=== PATIENT | male | born 1935 | race Caucasian/White ===

== ENCOUNTER 2017-01-27 20:56 | Emergency (ER) | payer MEDICARE, BC ==
[2017-01-27] MEDS ORDERED: ALBUTEROL NEBULIZED 2.5 MG/3 ML INHALATION STA (21:19)
[2017-01-27 21:37] LABS: Basophils # (A) 0.1 k/uL (0-0.2); Basophils % (A) 2 %; CH 32.9; CHCM 34.4; Eosinophils # (A) 0.3 k/uL (0-0.7); Eosinophils % (A) 4 %; HCT 34.7 % (39.0-53.0); HDW 2.37; Luc # (Auto) 0.27; Luc % (Auto) 4; Lymphocytes # (A) 1.5 k/uL (1.0-4.8); Lymphocytes % (A) 23 %; MCH 33.1 pg (25.0-35.0); MCHC 34.5 g/dL (31.0-37.0); MCV 95.9 fL (80.0-100.0); Mean Platelet Volume 7.3; Monocytes # (A) 0.4 k/uL (0-1.0); Monocytes % (A) 6 %; Neutrophils % (A) 62 %; RBC 3.62 m/uL (4.30-5.90); RDW 12.6 % (11.5-15.5); WBC 6.4 k/uL (3.8-10.6); WBC (Perox) 6.72
[2017-01-27 21:51] LABS: Partial Thromboplastin Time 22.9 sec (22.0-30.0)
[2017-01-27 21:54] LABS: ALT 21 U/L (21-72); AST 24 U/L (17-59); Alkaline Phosphatase 84 U/L (38-126); Anion Gap 14 mmol/L; Blood Urea Nitrogen 14 mg/dL (9-20); Calcium 9.2 mg/dL (8.4-10.2); Carbon Dioxide 20 mmol/L (22-30); Chloride 99 mmol/L (98-107); Glucose 90 mg/dL (74-99); Non-African American GFR(MDRD) >60 (>60 ml/min/1.73 sqM); Potassium 4.5 mmol/L (3.5-5.1); Sodium 133 mmol/L (137-145); Total Bilirubin 0.6 mg/dL (0.2-1.3)
[2017-01-27] MEDS ORDERED: LIDOCAINE VISCOUS 300 MG/15 ML CUP MUCOUS MEM STA (21:55)
--- NOTE | 2017-01-27 21:56 | XR ---
EXAMINATION TYPE: XR chest 2V DATE OF EXAM: 01/27/2017 9:33 PM COMPARISON: 04/26/2010 HISTORY: Cough TECHNIQUE: Frontal and lateral views of the chest are obtained. FINDINGS: There is coarsening of interstitial markings. Heart size is normal. There is no gross hear t failure. There are no hilar masses. There are chest leads. There is no sign of pleural effusion. IMPRESSION: Pulmonary interstitial fibrosis that has progressed compared to old exam. No gross heart failure. Acute interstitial pneumonia cannot be excluded.
--- NOTE | 2017-01-27 22:08 | ED ---
General Adult HPI - General Chief complaint: Shortness of Breath Stated complaint: SOB Time Seen by Provider: 01/27/17 21:03 Source: patient Mode of arrival: wheelchair Limitations: no limitations - History of Present Illness Initial comments: This patient is an 81-year-old man with history of interstitial fibrosis who presents to be evaluated for worsening of his cough and shortness of breath that is been going on for between 1 and 2 weeks. Patient denies fever or chills. He states there is occasional yellow sputum. He denies chest pain, leg pain or swelling, change in urination, bloody or dark tarry stools. Complaint: cough -: days(s) Consistency: constant Improves with: none Worsens with: none Associated Symptoms: cough, shortness of breath - Related Data Home Medications Medication Instructions Recorded Confirmed Aspirin [Adult Low Dose Aspirin EC] 81 mg PO DAILY 02/14/16 01/27/17 Atorvastatin [Lipitor] 20 mg PO DAILY 02/14/16 01/27/17 Lisinopril [Zestril] 10 mg PO DAILY 02/14/16 01/27/17 Previous Rx's Medication Instructions Recorded Albuterol Inhaler [Ventolin Hfa 1 - 2 puff INHALATION Q6HR PRN #1 01/27/17 Inhaler] inhaler Azithromycin [Zithromax Z-pack] 250 mg PO DIRECTED #6 tab 01/27/17 predniSONE 60 mg PO DAILY #30 tab 01/27/17 Allergies Allergy/AdvReac Type Severity Reaction Status Date / Time No Known Allergies Allergy Verified 01/27/17 21:02 Review of Systems ROS Statement: Those systems with pertinent positive or pertinent negative responses have been documented in the HPI. ROS Other: All systems not noted in ROS Statement are negative. Constitutional: Denies: fever, chills Respiratory: Reports: cough, dyspnea, wheezes. Denies: hemoptysis Cardiovascular: Denies: chest pain, palpitations, orthopnea, edema, syncope Gastrointestinal: Denies: abdominal pain, vomiting, melena, hematochezia Genitourinary: Denies: dysuria, hematuria Musculoskeletal: Denies: back pain Skin: Denies: rash Neurological: Denies: headache Past Medical History Past Medical History: Hyperlipidemia, Hypertension, Myocardial Infarction ([place]) Additional Past Medical History / Comment(s): PROSTATE CANCER History of Any Multi-Drug Resistant Organisms: None Reported Past Surgical History: Heart Catheterization Past Psychological History: No Psychological Hx Reported Smoking Status: Never smoker Past Alcohol Use History: Daily Past Drug Use History: None Reported General Exam Limitations: no limitations General appearance: alert, in no apparent distress Head exam: Present: atraumatic, normocephalic Eye exam: Present: normal appearance Respiratory exam: Present: wheezes. Absent: respiratory distress, rales, rhonchi, stridor, accessory muscle use, decreased breath sounds Cardiovascular Exam: Present: regular rate, normal rhythm, normal heart sounds. Absent: systolic murmur, diastolic murmur, rubs, gallop GI/Abdominal exam: Present: soft. Absent: distended, tenderness, guarding, rebound, rigid Extremities exam: Present: normal inspection, normal capillary refill. Absent: pedal edema, calf tenderness Back exam: Present: normal inspection. Absent: CVA tenderness (R), CVA tenderness (L) Neurological exam: Present: alert Skin exam: Present: warm, dry, intact, normal color. Absent: rash Course Vital Signs 01/27/17 01/27/17 01/27/17 20:59 21:19 21:26 Temperature 99.1 F Pulse Rate 89 86 89 Respiratory 20 Rate Blood Pressure 123/68 O2 Sat by Pulse 96 Oximetry 01/27/17 01/28/17 22:02 00:03 Temperature 98.9 F Pulse Rate 78 76 Respiratory 18 18 Rate Blood Pressure 123/72 121/74 O2 Sat by Pulse 96 96 Oximetry EKG Findings - EKG Results: EKG: interpreted by SULY NUÑEZ, sinus rhythm (Rate 85 bpm), normal axis, normal QRS, normal ST/T, no acute changes Medical Decision Making - Medical Decision Making Patient is a-year-old man with history of interstitial fibrosis. He comes in with concern that he may have pneumonia as she continues to cough and shortness of breath. The patient did have a mildly elevated d-dimer and had CT that shows probable progression of his interstitial fibrosis. The patient is feeling better following treatments here. I discussed admission with seeing the general assistant while he is here with patient feels better and would rather follow as outpatient. We discussed return parameters he'll return if the symptoms recur or there is worsening in anyway. - Lab Data Result diagrams: 01/27/17 21:10 01/27/17 21:10 Lab Results 01/27/17 01/27/17 01/27/17 Range/Units 21:10 21:10 21:10 WBC 6.4 (3.8-10.6) k/uL RBC 3.62 L (4.30-5.90) m/uL Hgb 12.0 L (13.0-17.5) gm/dL Hct 34.7 L (39.0-53.0) % MCV 95.9 (80.0-100.0) fL MCH 33.1 (25.0-35.0) pg MCHC 34.5 (31.0-37.0) g/dL RDW 12.6 (11.5-15.5) % Plt Count 175 (150-450) k/uL Neutrophils % 62 % Lymphocytes % 23 % Monocytes % 6 % Eosinophils % 4 % Basophils % 2 % Neutrophils # 4.0 (1.3-7.7) k/uL Lymphocytes # 1.5 (1.0-4.8) k/uL Monocytes # 0.4 (0-1.0) k/uL Eosinophils # 0.3 (0-0.7) k/uL Basophils # 0.1 (0-0.2) k/uL PT 10.0 (9.0-12.0) sec INR 1.0 (<1.1) APTT 22.9 (22.0-30.0) sec D-Dimer 3.46 H (<0.60) mg/L FEU Sodium 133 L (137-145) mmol/L Potassium 4.5 (3.5-5.1) mmol/L Chloride 99 (98-107) mmol/L Carbon Dioxide 20 L (22-30) mmol/L Anion Gap 14 mmol/L BUN 14 (9-20) mg/dL Creatinine 0.90 (0.66-1.25) mg/dL Est GFR (MDRD) Af Amer >60 (>60 ml/min/1.73 sqM) Est GFR (MDRD) Non-Af >60 (>60 ml/min/1.73 sqM) Glucose 90 (74-99) mg/dL Calcium 9.2 (8.4-10.2) mg/dL Total Bilirubin 0.6 (0.2-1.3) mg/dL AST 24 (17-59) U/L ALT 21 (21-72) U/L Alkaline Phosphatase 84 (38-126) U/L Troponin I (0.000-0.034) ng/mL NT-Pro-B Natriuret Pep pg/mL Total Protein 8.0 (6.3-8.2) g/dL Albumin 4.1 (3.5-5.0) g/dL Influenza Type A RNA (Not Detectd) Influenza Type B (PCR) (Not Detectd) 01/27/17 01/27/17 01/27/17 Range/Units 21:10 21:10 21:10 WBC (3.8-10.6) k/uL RBC (4.30-5.90) m/uL Hgb (13.0-17.5) gm/dL Hct (39.0-53.0) % MCV (80.0-100.0) fL MCH (25.0-35.0) pg MCHC (31.0-37.0) g/dL RDW (11.5-15.5) % Plt Count (150-450) k/uL Neutrophils % % Lymphocytes % % Monocytes % % Eosinophils % % Basophils % % Neutrophils # (1.3-7.7) k/uL Lymphocytes # (1.0-4.8) k/uL Monocytes # (0-1.0) k/uL Eosinophils # (0-0.7) k/uL Basophils # (0-0.2) k/uL PT (9.0-12.0) sec INR (<1.1) APTT (22.0-30.0) sec D-Dimer (<0.60) mg/L FEU Sodium (137-145) mmol/L Potassium (3.5-5.1) mmol/L Chloride (98-107) mmol/L Carbon Dioxide (22-30) mmol/L Anion Gap mmol/L BUN (9-20) mg/dL Creatinine (0.66-1.25) mg/dL Est GFR (MDRD) Af Amer (>60 ml/min/1.73 sqM) Est GFR (MDRD) Non-Af (>60 ml/min/1.73 sqM) Glucose (74-99) mg/dL Calcium (8.4-10.2) mg/dL Total Bilirubin (0.2-1.3) mg/dL AST (17-59) U/L ALT (21-72) U/L Alkaline Phosphatase (38-126) U/L Troponin I <0.012 (0.000-0.034) ng/mL NT-Pro-B Natriuret Pep 451 pg/mL Total Protein (6.3-8.2) g/dL Albumin (3.5-5.0) g/dL Influenza Type A RNA Not Detected (Not Detectd) Influenza Type B (PCR) Not Detected (Not Detectd) Disposition Clinical Impression: Interstitial pulmonary fibrosis Disposition: HOME SELF-CARE Condition: Fair Instructions: Pulmonary Fibrosis (ED) Prescriptions: Albuterol Inhaler [Ventolin Hfa Inhaler] 1 - 2 puff INHALATION Q6HR PRN #1 inhaler PRN Reason: Wheezing Azithromycin [Zithromax Z-pack] 250 mg PO DIRECTED #6 tab predniSONE 60 mg PO DAILY #30 tab Referrals: Gokul Guerrero DO [Primary Care Provider] - 1-2 days Connor Rasmussen MD [STAFF PHYSICIAN] - 1-2 days
[2017-01-27] MEDS ORDERED: AZITHROMYCIN 500 MG TAB PO STA (22:30)
[2017-01-27] MEDS ORDERED: RX INFO: IV CONTRAST WAS GIVEN 1 EACH MISC MISCELLANE PRN (22:31)
--- NOTE | 2017-01-27 23:19 | CT ---
Exam: CTA CHEST History: Dyspnea, rule out PE. Comparison: No prior CT. Technique: Continuous axial images of the chest were obtained per CTPA protocol. Findings: No definite filling defect to suggest a pulmonary embolus. No significant acute aortic abnormality. Calcific aortic and coronary calcific atherosclerosis is present. Heart is normal in size. No pericardial effusion. No consolidation to suggest pneumonia. No pleural effusion. However, there is mild prominence of interstitial lung markings diffusely. This is predominantly seen in a peripheral distribution. It may represent developing pulmonary fibrosis. Borderline mediastinal lymphadenopathy with at least one lymph node measuring approximately 1.1 cm in short axis dimension. No aggressive appearing osseous process, but there is subtle contour irregularity of the left 5-9 and right 7-9 right rib fractures. Impression: 1. No evidence for pulmonary embolism. 2. Evidence for interstitial pulmonary fibrosis. Correlate with social history. No consolidation. 3. Borderline mediastinal lymphadenopathy. May be reactive there has been recent infection. Malignancy considered less likely, consider 6 month followup. CTDI vol = 58 mGy DLP = 267.9 mGycm
[2017-01-27 23:31] VITALS: RESP 18
[2017-01-27] MEDS ORDERED: predniSONE 20 MG TAB PO STA (23:37)
[2017-01-28 00:05] VITALS: BP 121/74; PULSE 76; TEMP 98.9
== END 2017-01-28 00:03 | disposition home or self-care (01) ==
LOC: EC 20:56
DX: J84.10 Pulmonary fibrosis, unspecified (principal); E78.5 Hyperlipidemia, unspecified; I10 Essential (primary) hypertension; I25.2 Old myocardial infarction; Z85.46 Personal history of malignant neoplasm of prostate; Z95.5 Presence of coronary angioplasty implant and graft; Z79.82 Long term (current) use of aspirin; Z79.899 Other long term (current) drug therapy
CPT/HCPCS: 99285; 96365; 36415; 94640; 93005; 85379; 83880; 80053; 84484; 85025; 85610; 85730; 87502; 71020; 71275; Q9967; J0696; J7512

== ENCOUNTER → 2017-09-12 | Outpatient (CLI) | payer MEDICARE, BC ==
[2017-09-16 15:53] LABS: Large VLDL Particle Number,NMR 1.6 nmol/L (<=2.7)
== END | disposition home or self-care (01) ==
LOC: LABWHC1 10:28
PROVIDERS: ATTEND Internal Medicine Cardiovascular Disease
DX: I25.10 Atherosclerotic heart disease of native coronary artery without angina pectoris (principal)
CPT/HCPCS: 36415; 83704

== ENCOUNTER → 2019-04-26 | Outpatient (CLI) | payer MEDICARE, BC ==
[2019-04-26 08:55] LABS: African American GFR (CKD) 53 (>60 ml/min/1.73 sqM); Anion Gap 10 mmol/L; Blood Urea Nitrogen 24 mg/dL (9-20); Calcium 9.5 mg/dL (8.4-10.2); Carbon Dioxide 24 mmol/L (22-30); Chloride 98 mmol/L (98-107); Glucose 94 mg/dL (74-99); Potassium 5.8 mmol/L (3.5-5.1); Sodium 132 mmol/L (137-145)
== END | disposition home or self-care (01) ==
LOC: LABWHC1 08:22
PROVIDERS: ATTEND Family Medicine
DX: E87.1 Hypo-osmolality and hyponatremia (principal)
CPT/HCPCS: 36415; 80048

== ENCOUNTER 2019-05-13 06:00 | Emergency (ER) | payer MEDICARE, BC ==
[2019-05-13 06:06] VITALS: RESP 18; TEMP 97.4
[2019-05-13 06:25] LABS: Basophils % (A) 1 %; Eosinophils # (A) 0.5 k/uL (0-0.7); Eosinophils % (A) 9 %; HCT 37.4 % (39.0-53.0); HGB 12.6 gm/dL (13.0-17.5); Lymphocytes # (A) 1.6 k/uL (1.0-4.8); Lymphocytes % (A) 29 %; MCH 31.9 pg (25.0-35.0); MCHC 33.8 g/dL (31.0-37.0); MCV 94.4 fL (80.0-100.0); Mean Platelet Volume 7.5; Monocytes # (A) 0.4 k/uL (0-1.0); Monocytes % (A) 8 %; Neutrophils % (A) 53 %; Platelet Count 180 k/uL (150-450); RBC 3.96 m/uL (4.30-5.90); RDW 13.4 % (11.5-15.5); WBC 5.7 k/uL (3.8-10.6)
--- NOTE | 2019-05-13 06:34 | ED ---
Recheck HPI - General Chief Complaint: Recheck/Abnormal Lab/Rx Stated Complaint: Abn labs Time Seen by Provider: 05/13/19 06:23 Source: patient Mode of arrival: ambulatory Limitations: no limitations - History of Present Illness Initial Comments: This patient is an 83-year-old man who presents to be evaluated for an abnormal lab test. The patient states that he had been following up with clinic at the [facility]. He had blood drawn then reportedly one his electrolytes was off. The patient does not recall which one but they had called him about. She states that this is something that they had been following as it was previously elevated there a few days before. He was told he should be seen at the emergency department in relation to this test. In reviewing systems, the patient states she has been having some generalized weakness and fatigue going back between a week and 2. He states he has also had a little bit of a nonproductive cough for the past 4-5 days. He is denying dyspnea. No change in urination or bowel movements. No leg pain or swelling. MD Complaint: abnormal lab -: days(s) Returns Today for: Called Because of Abnormal Lab/Test Symptoms Since Prior Visit: no new symptoms Context: called for abnormal lab result Associated Symptoms: none - Related Data Home Medications Medication Instructions Recorded Confirmed Aspirin [Adult Low Dose Aspirin EC] 81 mg PO DAILY 02/14/16 01/27/17 Atorvastatin [Lipitor] 20 mg PO DAILY 02/14/16 01/27/17 Lisinopril [Zestril] 10 mg PO DAILY 02/14/16 01/27/17 Previous Rx's Medication Instructions Recorded Albuterol Inhaler [Ventolin Hfa 1 - 2 puff INHALATION Q6HR PRN #1 01/27/17 Inhaler] inhaler Azithromycin [Zithromax Z-pack] 250 mg PO DIRECTED #6 tab 01/27/17 predniSONE 60 mg PO DAILY #30 tab 01/27/17 Allergies Allergy/AdvReac Type Severity Reaction Status Date / Time No Known Allergies Allergy Verified 01/27/17 21:02 Review of Systems ROS Statement: Those systems with pertinent positive or pertinent negative responses have been documented in the HPI. ROS Other: All systems not noted in ROS Statement are negative. Constitutional: Reports: weakness (Generalized). Denies: fever, chills Respiratory: Reports: cough. Denies: dyspnea, wheezes, hemoptysis Cardiovascular: Denies: chest pain, palpitations, edema Gastrointestinal: Denies: abdominal pain, vomiting, diarrhea, constipation Genitourinary: Denies: dysuria, hematuria Musculoskeletal: Denies: back pain Skin: Denies: rash Neurological: Denies: headache, weakness, numbness Past Medical History Past Medical History: Hyperlipidemia, Hypertension, Myocardial Infarction ([place]) Additional Past Medical History / Comment(s): PROSTATE CANCER History of Any Multi-Drug Resistant Organisms: None Reported Past Surgical History: Heart Catheterization Past Psychological History: No Psychological Hx Reported Smoking Status: Never smoker Past Alcohol Use History: Daily Past Drug Use History: None Reported General Exam Limitations: no limitations General appearance: alert, in no apparent distress Head exam: Present: atraumatic, normocephalic Eye exam: Present: normal appearance Neck exam: Present: normal inspection Respiratory exam: Present: normal lung sounds bilaterally. Absent: respiratory distress, wheezes, rales, rhonchi, stridor Cardiovascular Exam: Present: regular rate, normal rhythm, normal heart sounds. Absent: systolic murmur, diastolic murmur, rubs, gallop GI/Abdominal exam: Present: soft. Absent: distended, tenderness, guarding, rebound, rigid Extremities exam: Present: normal inspection, normal capillary refill Back exam: Present: normal inspection. Absent: CVA tenderness (R), CVA tenderness (L) Neurological exam: Present: alert Skin exam: Present: warm, dry, intact, normal color. Absent: rash Course Vital Signs 05/13/19 06:01 Temperature 97.4 F L Pulse Rate 69 Respiratory 18 Rate Blood Pressure 166/80 O2 Sat by Pulse 98 Oximetry Medical Decision Making - Lab Data Result diagrams: 05/13/19 06:18 05/13/19 06:18 Lab Results 05/13/19 05/13/19 05/13/19 Range/Units 06:18 06:18 06:18 WBC 5.7 (3.8-10.6) k/uL RBC 3.96 L (4.30-5.90) m/uL Hgb 12.6 L (13.0-17.5) gm/dL Hct 37.4 L (39.0-53.0) % MCV 94.4 (80.0-100.0) fL MCH 31.9 (25.0-35.0) pg MCHC 33.8 (31.0-37.0) g/dL RDW 13.4 (11.5-15.5) % Plt Count 180 (150-450) k/uL Neutrophils % 53 % Lymphocytes % 29 % Monocytes % 8 % Eosinophils % 9 % Basophils % 1 % Neutrophils # 3.0 (1.3-7.7) k/uL Lymphocytes # 1.6 (1.0-4.8) k/uL Monocytes # 0.4 (0-1.0) k/uL Eosinophils # 0.5 (0-0.7) k/uL Basophils # 0.0 (0-0.2) k/uL Sodium 130 L (137-145) mmol/L Potassium 5.0 (3.5-5.1) mmol/L Chloride 96 L (98-107) mmol/L Carbon Dioxide 23 (22-30) mmol/L Anion Gap 11 mmol/L BUN 14 (9-20) mg/dL Creatinine 1.19 (0.66-1.25) mg/dL Est GFR (CKD-EPI)AfAm 66 (>60 ml/min/1.73 sqM) Est GFR (CKD-EPI)NonAf 57 (>60 ml/min/1.73 sqM) Glucose 99 (74-99) mg/dL Calcium 9.4 (8.4-10.2) mg/dL NT-Pro-B Natriuret Pep 1150 pg/mL - EKG Data -: EKG Interpreted by Pr EKG shows normal: sinus rhythm, axis (Normal), intervals (Normal), QRS complexes (Normal), ST-T waves (Normal) Rate: normal (Rate 63 bpm) Interpretation: normal EKG Disposition Clinical Impression: Hyponatremia Disposition: HOME SELF-CARE Condition: Fair Is patient prescribed a controlled substance at d/c from ED?: No Referrals: Gokul Guerrero DO [Primary Care Provider] - 1-2 days
[2019-05-13 06:47] LABS: Calcium 9.4 mg/dL (8.4-10.2)
--- NOTE | 2019-05-13 06:52 | XR ---
EXAM: XR Chest, 2 Views CLINICAL HISTORY: cough TECHNIQUE: Frontal and lateral views of the chest. COMPARISON: CT 01/27/2017 FINDINGS: Lungs: Coarse bilateral pulmonary reticulation. No consolidation. Pleural space: Unremarkable. No pneumothorax. Heart: Stable cardiomediastinal silhouette. Mediastinum: See above. Bones/joints: No acute osseous abnormality. Tubes, lines and devices: Telemetry leads overlie the patient. IMPRESSION: Coarse bilateral pulmonary reticulation is compatible with interstitial lung disease. No consolidation.
[2019-05-13] MEDS ORDERED: SODIUM CHLORIDE 0.9% 500 ML 500 ML IV STA (07:03)
[2019-05-13 07:55] VITALS: BP 142/75; PULSE 60
== END 2019-05-13 07:56 | disposition home or self-care (01) ==
LOC: EC 06:00
DX: E87.1 Hypo-osmolality and hyponatremia (principal); I10 Essential (primary) hypertension; E78.5 Hyperlipidemia, unspecified; I25.2 Old myocardial infarction; Z79.82 Long term (current) use of aspirin; Z79.899 Other long term (current) drug therapy; Z85.46 Personal history of malignant neoplasm of prostate; Z95.5 Presence of coronary angioplasty implant and graft
CPT/HCPCS: 36415; 71046; 80048; 83880; 85025; 93005; 99283

== ENCOUNTER → 2020-04-05 | Outpatient (CLI) | payer MEDICARE, BC ==
--- NOTE | 2020-04-05 08:09 | XR ---
EXAMINATION TYPE: XR chest 2V DATE OF EXAM: 04/05/2020 COMPARISON: 719 TECHNIQUE: PA and lateral views submitted. HISTORY: Cough FINDINGS: The lungs are clear and there is no pneumothorax, pleural effusion, or focal pneumonia. Heart size normal. Coarsened interstitium. Arthropathy shoulders. Biapical pleural thickening. Hypertrophic and degenerative change of the spine.Mild prominence of the right paratracheal stripe appears stable dati ng back to the previous CT scan of 01/27/2017 and May be related to ectatic vasculature. Correlate for underlying COPD. Hypertrophic and degenerative change spine. IMPRESSION: 1. No acute process. Correlate for pulmonary fibrosis.
[2020-04-05 08:46] LABS: HCT 38.2 % (39.0-53.0); HGB 12.5 gm/dL (13.0-17.5); MCH 33.3 pg (25.0-35.0); MCHC 32.7 g/dL (31.0-37.0); MCV 101.9 fL (80.0-100.0); Macrocytosis Slight; Mean Platelet Volume 7.7; Platelet Count 203 k/uL (150-450); RBC 3.75 m/uL (4.30-5.90); RDW 13.1 % (11.5-15.5); WBC 7.3 k/uL (3.8-10.6)
[2020-04-05 09:03] LABS: Potassium 4.6 mmol/L (3.5-5.1)
== END | disposition home or self-care (01) ==
LOC: RADXRMAIN 07:48
PROVIDERS: ATTEND Internal Medicine Cardiovascular Disease
DX: R06.02 Shortness of breath (principal)
CPT/HCPCS: 83880; 80051; 82565; 84520; 85027; 71046; 36415; U0003

== ENCOUNTER 2021-03-30 10:51 | Observation (INO) | payer OTHER, MEDICARE, BC ==
--- NOTE | 2021-03-30 11:23 | ED ---
General Adult HPI - General Chief complaint: Shortness of Breath Stated complaint: sob/low o2 Time Seen by Provider: 03/30/21 11:09 Source: patient Mode of arrival: wheelchair Limitations: no limitations - History of Present Illness Initial comments: Dictation was produced using [employer] dictation software. please excuse any grammatical, word or spelling errors. Chief Complaint: 85-year-old male presents to the emergency department for shortness of breath. History of Present Illness: 85 y Old male presents today with acute on chronic shortness of breath he was seen at his clinic office with his primary care physician and was found to be hypoxic. He was told to come to the emergency department for medical evaluation. Patient states he has history of heart problems. He states that he's had heart attack in the past. He reports that he takes heart pills. At rest he feels fine and he notices his symptoms worse with exertion. Not wear oxygen at home. He has a remote history of smoking. Does not abuse tobacco anymore. The ROS documented in this emergency department record has been reviewed and confirmed by me. Those systems with pertinent positive or negative responses have been documented in the HPI. All other systems are other negative and/or noncontributory. PHYSICAL EXAM: General Impression: Alert and oriented x3, not in acute distress HEENT: Normocephalic atraumatic, extra-ocular movements intact, pupils equal and reactive to light bilaterally, mucous membranes moist. Cardiovascular: Heart regular rate and rhythm Chest: Able to complete full sentences, no retractions, no tachypnea, lungs clear to auscultation bilaterally Abdomen: abdomen soft, non-tender, non-distended, no organomegaly Musculoskeletal: Pulses present and equal in all extremities, no peripheral edema Motor: no focal deficits noted Neurological: CN II-XII grossly intact, no focal motor or sensory deficits noted Skin: Intact with no visualized rashes Psych: Normal affect and mood ED course: 85-year-old male sent in by primary care physician for hypoxia and exertional dyspnea. Vital signs upon arrival are within acceptable limits. Patient is not hypoxic on room air. Ambulatory pulse ox dropped to 85%. EKG interpretation: Ventricular rate 56, sinus bradycardia,. 172, QRS 96, QTC 41. No IA prolongation, no QTC prolongation, no ST or T-wave changes noted. EKG compared to 05/13/2019 showing no changes. Overall, this EKG is unremarkable Vital signs upon arrival shows CBC and metabolic panel within acceptable limits. Troponin is negative. Brain natruretic peptide elevated at 1540. This is likely a normal result given patient's age. Chest x-ray shows chronic reticular pattern without any acute processes. Patient reevaluated at bedside he is stable at rest with 2 L is a cannula. Patient be admitted for pulmonology consultation for evaluation of hypoxic respiratory failure. - Related Data Home Medications Medication Instructions Recorded Confirmed Aspirin [Adult Low Dose Aspirin EC] 81 mg PO DAILY 02/14/16 03/30/21 Atorvastatin [Lipitor] 20 mg PO DAILY 02/14/16 03/30/21 lisinopriL [Zestril] 10 mg PO DAILY 02/14/16 03/30/21 Metoprolol Succinate (ER) [Toprol 25 mg PO DAILY 05/13/19 03/30/21 Xl] Allergies Allergy/AdvReac Type Severity Reaction Status Date / Time No Known Allergies Allergy Verified 03/30/21 13:44 Review of Systems ROS Statement: Those systems with pertinent positive or pertinent negative responses have been documented in the HPI. ROS Other: All systems not noted in ROS Statement are negative. Past Medical History Past Medical History: Hyperlipidemia, Hypertension, Myocardial Infarction ([place]) Additional Past Medical History / Comment(s): PROSTATE CANCER History of Any Multi-Drug Resistant Organisms: None Reported Past Surgical History: Heart Catheterization Past Psychological History: No Psychological Hx Reported Smoking Status: Never smoker Past Alcohol Use History: Daily Past Drug Use History: None Reported General Exam Limitations: no limitations Course Vital Signs 03/30/21 10:56 Temperature 98.0 F Pulse Rate 62 Respiratory 20 Rate Blood Pressure 160/82 O2 Sat by Pulse 96 Oximetry Medical Decision Making - Lab Data Result diagrams: 03/30/21 11:39 03/30/21 11:39 Lab Results 03/30/21 03/30/21 03/30/21 Range/Units 11:39 11:39 11:39 WBC 5.3 (3.8-10.6) k/uL RBC 3.87 L (4.30-5.90) m/uL Hgb 12.3 L (13.0-17.5) gm/dL Hct 37.3 L (39.0-53.0) % MCV 96.5 (80.0-100.0) fL MCH 31.8 (25.0-35.0) pg MCHC 32.9 (31.0-37.0) g/dL RDW 13.5 (11.5-15.5) % Plt Count 165 (150-450) k/uL MPV 7.9 Neutrophils % 60 % Lymphocytes % 25 % Monocytes % 7 % Eosinophils % 6 % Basophils % 1 % Neutrophils # 3.1 (1.3-7.7) k/uL Lymphocytes # 1.3 (1.0-4.8) k/uL Monocytes # 0.4 (0-1.0) k/uL Eosinophils # 0.3 (0-0.7) k/uL Basophils # 0.0 (0-0.2) k/uL Sodium 134 L (137-145) mmol/L Potassium 4.3 (3.5-5.1) mmol/L Chloride 101 (98-107) mmol/L Carbon Dioxide 27 (22-30) mmol/L Anion Gap 6 mmol/L BUN 16 (9-20) mg/dL Creatinine 1.38 H (0.66-1.25) mg/dL Est GFR (CKD-EPI)AfAm 54 (>60 ml/min/1.73 sqM) Est GFR (CKD-EPI)NonAf 47 (>60 ml/min/1.73 sqM) Glucose 106 H (74-99) mg/dL Calcium 9.2 (8.4-10.2) mg/dL Troponin I <0.012 (0.000-0.034) ng/mL NT-Pro-B Natriuret Pep pg/mL 03/30/21 Range/Units 11:39 WBC (3.8-10.6) k/uL RBC (4.30-5.90) m/uL Hgb (13.0-17.5) gm/dL Hct (39.0-53.0) % MCV (80.0-100.0) fL MCH (25.0-35.0) pg MCHC (31.0-37.0) g/dL RDW (11.5-15.5) % Plt Count (150-450) k/uL MPV Neutrophils % % Lymphocytes % % Monocytes % % Eosinophils % % Basophils % % Neutrophils # (1.3-7.7) k/uL Lymphocytes # (1.0-4.8) k/uL Monocytes # (0-1.0) k/uL Eosinophils # (0-0.7) k/uL Basophils # (0-0.2) k/uL Sodium (137-145) mmol/L Potassium (3.5-5.1) mmol/L Chloride (98-107) mmol/L Carbon Dioxide (22-30) mmol/L Anion Gap mmol/L BUN (9-20) mg/dL Creatinine (0.66-1.25) mg/dL Est GFR (CKD-EPI)AfAm (>60 ml/min/1.73 sqM) Est GFR (CKD-EPI)NonAf (>60 ml/min/1.73 sqM) Glucose (74-99) mg/dL Calcium (8.4-10.2) mg/dL Troponin I (0.000-0.034) ng/mL NT-Pro-B Natriuret Pep 1540 pg/mL Critical Care Time Critical Care Time: Yes Total Critical Care Time: 33 Disposition Clinical Impression: Acute respiratory failure with hypoxia Disposition: ADMITTED IP TO THIS HOSP Condition: Fair Referrals: [facility],Clinic [Primary Care Provider] - 1-2 days
[2021-03-30 11:59] LABS: Basophils % (A) 1 %; Eosinophils # (A) 0.3 k/uL (0-0.7); Eosinophils % (A) 6 %; HCT 37.3 % (39.0-53.0); HGB 12.3 gm/dL (13.0-17.5); Lymphocytes # (A) 1.3 k/uL (1.0-4.8); Lymphocytes % (A) 25 %; MCH 31.8 pg (25.0-35.0); MCHC 32.9 g/dL (31.0-37.0); MCV 96.5 fL (80.0-100.0); Mean Platelet Volume 7.9; Monocytes # (A) 0.4 k/uL (0-1.0); Monocytes % (A) 7 %; Neutrophils # (A) 3.1 k/uL (1.3-7.7); Neutrophils % (A) 60 %; Platelet Count 165 k/uL (150-450); RBC 3.87 m/uL (4.30-5.90); RDW 13.5 % (11.5-15.5); WBC 5.3 k/uL (3.8-10.6)
[2021-03-30 12:10] LABS: Calcium 9.2 mg/dL (8.4-10.2); Potassium 4.3 mmol/L (3.5-5.1)
--- NOTE | 2021-03-30 12:12 | XR ---
EXAMINATION TYPE: XR chest 1V portable DATE OF EXAM: 03/30/2021 COMPARISON: Chest x-ray April 05, 2020 HISTORY: Shortness of breath TECHNIQUE: Single frontal portable view of the chest is obtained. FINDINGS: Bilateral reticular interstitial prominence redemonstrated. There is no new suspicious foc al air space opacity, pleural effusion, or pneumothorax seen. The cardiac silhouette size is more pr ominent but remains within normal limits. The osseous structures remain demineralized. IMPRESSION: Advanced chronic reticular fibrotic interstitial changes bilaterally redemonstrated with out new focal infiltrate.
[2021-03-30] MEDS ORDERED: dexAMETHasone 4 MG TAB PO STA (14:16)
[2021-03-30] MEDS ORDERED: NALOXONE 0.4 MG/ML 1 ML VIAL IV PRN (14:19)
[2021-03-30] MEDS ORDERED: ONDANSETRON 4 MG/2 ML VIAL IVP PRN (14:19)
--- NOTE | 2021-03-30 16:11 | P.CNPUL ---
History of Present Illness Consult date: 03/30/21 Reason for consult: hypoxemia History of present illness: 85-year-old male patient presents to the ED with worsening shortness of breath. The patient was admitted as he was found to be dyspneic and hypoxic and he was referred to the emergency department. Note that the patient gives a long history of pulmonary fibrosis. There is a CAT scan of the chest back in 2017 that indicated pulmonary fibrosis which was more consistent with IPF. Ne vertheless, the patient has not seen a pig lead melter helper on a regular basis. He was checking his O2 at home and he was noticing lower pulse ox progressively and his pulse ox was as low as 86%. He shortness of breath has been progressively getting worse over the years. There is no acute worsening in dyspnea. He has limited chronic cough. No significant sputum production. No pain. No pleurisy. No hemoptysis. No swelling lower extremities. No recurrent pneumonias. He came into the emergency room a chest x-ray was not was typical for pulmonary fibrosis. The patient has undergone his COVID-19 vaccination. His COVID-19 testing came back negative. He has a creatinine of 1.3 and the patient is a known case of prostate cancer. Troponins are negative. The proBNP level is 1540. Review of Systems Constitutional: Reports as per HPI Eyes: denies as per HPI, denies blurred vision, denies bulging eye, denies decreased vision, denies diplopia, denies discharge, denies dry eye, denies irritation, denies itching, denies pain, denies photophobia, denies loss of peripheral vision, denies loss of vision, denies tunnel vision/blind spots Ears, nose, mouth and throat: Reports as per HPI Breasts: absent: as per HPI, gynecomastia Cardiovascular: Reports decreased exercise tolerance, Reports dyspnea on exertion Respiratory: Reports as per HPI, Reports dyspnea, Reports home oxygen Gastrointestinal: Reports as per HPI Genitourinary: Reports as per HPI Musculoskeletal: Reports as per HPI Musculoskeletal: absent: ankle pain, ankle stiffness, ankle swelling, as per HPI, elbow pain, elbow stiffness, elbow swelling, foot pain, foot stiffness, foot swelling, hand pain, hand stiffness, hand swelling, hip pain, hip stiffness, hip swelling, knee pain, knee stiffness, knee swelling, shoulder pain, shoulder stiffness, shoulder swelling, wrist pain, wrist stiffness, wrist swelling Integumentary: Reports as per HPI Neurological: Reports as per HPI Psychiatric: Reports as per HPI Endocrine: Reports as per HPI Hematologic/Lymphatic: Reports as per HPI Allergic/Immunologic: Reports as per HPI Past Medical History Past Medical History: Coronary Artery Disease (CAD), Hyperlipidemia, Hypertension, Myocardial Infarction ([place]) Additional Past Medical History / Comment(s): PROSTATE CANCER, history of pulmonary fibrosis History of Any Multi-Drug Resistant Organisms: None Reported Past Surgical History: Heart Catheterization Past Psychological History: No Psychological Hx Reported Smoking Status: Never smoker Past Alcohol Use History: Daily Past Drug Use History: None Reported Medications and Allergies Home Medications Medication Instructions Recorded Confirmed Type Aspirin [Adult Low Dose Aspirin EC] 81 mg PO DAILY 02/14/16 03/30/21 History Atorvastatin [Lipitor] 20 mg PO DAILY 02/14/16 03/30/21 History lisinopriL [Zestril] 10 mg PO DAILY 02/14/16 03/30/21 History Metoprolol Succinate (ER) [Toprol 25 mg PO DAILY 05/13/19 03/30/21 History Xl] Allergies Allergy/AdvReac Type Severity Reaction Status Date / Time No Known Allergies Allergy Verified 03/30/21 13:44 Physical Exam Vitals: Vital Signs Temp Pulse Resp BP Pulse Ox 03/30/21 14:54 66 18 141/79 100 03/30/21 13:45 80 L 03/30/21 10:56 98.0 F 62 20 160/82 96 Intake and Output 03/30/21 03/30/21 03/30/21 06:59 14:59 22:59 Other: Weight 63.503 kg The patient appeared well nourished and normally developed. Vital signs as documented. Head exam is unremarkable. No scleral icterus or corneal arcus noted. Neck is without jugular venous distension, thyromegaly, or carotid bruits. Carotid upstrokes are brisk bilaterally. Lungs are diminished breath on the lung bases and the patient has coarse Velcro crackles involving the lung bases bilaterally. There is typical for pulmonary fibrosis. Cardiac exam reveals the PMI to be normally sized and situated. Rhythm is regular. First and second heart sounds normal. No murmurs, rubs or gallops. Abdominal exam reveals normal bowel sounds, no masses, no organomegaly and no aortic enlargement. Extremities are nonedematous and both femoral and pedal pulses are normal. She has digital clubbing. Examination of the skin revealed no evidence of significant rashes, suspicious appearing nevi or other concerning lesions.Neurologically, the patient is awake and alert and the patient does not have any focal neurological deficit. Cranial nerves are essentially intact. Results - Laboratory Findings CBC and BMP: 03/30/21 11:39 03/30/21 11:39 Abnormal lab findings: Abnormal Labs 03/30/21 03/30/21 11:39 11:39 RBC 3.87 L Hgb 12.3 L Hct 37.3 L Sodium 134 L Creatinine 1.38 H Glucose 106 H - Diagnostic Findings Chest x-ray: image reviewed CT scan - chest: image reviewed Assessment and Plan Plan: 1 IPF. The patient has chronic pulmonary fibrosis and the dates back to at least 2016 based on the previous CAT scan of the chest. I reviewed the earlier CAT scan the patient has pulmonary fibrosis with a lower lobe distribution and the peripheral distribution is very much consistent with IPF. 2 chronic hypoxic respiratory failure. The patient reports that he was hypoxemic even an outpatient basis for quite some time. He does not have home oxygen. There may be some interval progression with the use in terms of his exercise capacity and oxygenation and the patient is currently oxygen dependent. No signs of any acute decompensation at this point in time. No signs of any acute pneumonia. COVID-19 vaccinations were obtained. The patient will need outpatient workup regarding his pulmonary fibrosis. 3 chronic kidney disease, creatinine is at 1.3. 4 Remote history of myocardial infarction related to underlying coronary artery disease and this occurred more than 20 years ago 5 prostate cancer 6 hypertension 7 hyperlipidemia Plan Arrange home O2 involving a concentrator and portable tank Discussed the case with the primary medical team. I do not see any reason for this patient to be admitted to the hospital. His condition is chronic. The patient will need outpatient follow-up with pulmonary regarding his fibrosis. We will a baseline PFT and consideration needs to be given for anti-fibrotic treatment on outpatient basis. Check a baseline d-dimer Check a baseline pro-calcitonin level Obtain if CAT scan of the chest, a HRCT to assess the progression of his pulmonary fibrosis.
--- NOTE | 2021-03-30 16:22 | P.HPIM ---
History of Present Illness Patient is a pleasant 85-year-old male 's clinic compensative worsening shortness of breath. Patient does have history of pulmonary fibrosis. Patient does have a pulmonary fibrosis consistent with IPF. Patient has not seen a dot etcher apprentice recently. Patient was saturating at 86%. Patient is presently on 2 L of oxygen saturating well at this time. Patient will need home oxygen. Patient also has probably acute renal failure with creatinine of 1.36 in 2019 his creatinine is within normal lives patient is on the KENNY inhibitor which is being continued for now because of his elevated blood pressure. Patient was started on on the systemic steroids although may not be beneficial because he has IPF. Patient will need outpatient evaluation with pulmonary function testing and pulmonary follow-up as an outpatient. Pulmonary was consulted here. Patient does have history of prostate cancer. Patient's BNP is 1540. Patient chart as of breath has been getting worse for few years. Patient was having some dry cough. Patient has reticulonodular densities consistent with pulmonary fibrosis. Patient quit smoking 20 years ago denied any history of COPD. Review of Systems REVIEW OF SYSTEMS: CONSTITUTIONAL: No fever, no malaise, no fatigue. HEENT: No recent visual problems or hearing problems. Denied any sore throat. CARDIOVASCULAR: No chest pain, orthopnea, PND, no palpitations, no syncope. PULMONARY: no hemoptysis. GASTROINTESTINAL: No diarrhea, no nausea, no vomiting, no abdominal pain. NEUROLOGICAL: No headaches, no weakness, no numbness. HEMATOLOGICAL: Denies any bleeding or petechiae. GENITOURINARY: Denies any burning micturition, frequency, or urgency. MUSCULOSKELETAL/RHEUMATOLOGICAL: Denies any joint pain, swelling, or any muscle pain. ENDOCRINE: Denies any polyuria or polydipsia. The rest of the 14-point review of systems is negative. Past Medical History Past Medical History: Coronary Artery Disease (CAD), Hyperlipidemia, Hypertension, Myocardial Infarction ([place]) Additional Past Medical History / Comment(s): PROSTATE CANCER, history of pulmonary fibrosis History of Any Multi-Drug Resistant Organisms: None Reported Past Surgical History: Heart Catheterization Past Psychological History: No Psychological Hx Reported Smoking Status: Never smoker Past Alcohol Use History: Daily Past Drug Use History: None Reported Medications and Allergies Home Medications Medication Instructions Recorded Confirmed Type Aspirin [Adult Low Dose Aspirin EC] 81 mg PO DAILY 02/14/16 03/30/21 History Atorvastatin [Lipitor] 20 mg PO DAILY 02/14/16 03/30/21 History lisinopriL [Zestril] 10 mg PO DAILY 02/14/16 03/30/21 History Metoprolol Succinate (ER) [Toprol 25 mg PO DAILY 05/13/19 03/30/21 History Xl] Allergies Allergy/AdvReac Type Severity Reaction Status Date / Time No Known Allergies Allergy Verified 03/30/21 13:44 Physical Exam Vitals: Vital Signs Temp Pulse Resp BP Pulse Ox 03/30/21 14:54 66 18 141/79 100 03/30/21 13:45 80 L 03/30/21 10:56 98.0 F 62 20 160/82 96 Intake and Output 03/30/21 03/30/21 03/30/21 06:59 14:59 22:59 Other: Weight 63.503 kg PHYSICAL EXAMINATION: GENERAL: The patient is alert and oriented x3, not in any acute distress. Well developed, well nourished. HEENT: Pupils are round and equally reacting to light. EOMI. No scleral icterus. No conjunctival pallor. Normocephalic, atraumatic. No pharyngeal erythema. No thyromegaly. CARDIOVASCULAR: S1 and S2 present. No murmurs, rubs, or gallops. PULMONARY: Patient has good air entry into bilateral lung stock patient does have some crackles bilaterally ABDOMEN: Soft, nontender, nondistended, normoactive bowel sounds. No palpable organomegaly. MUSCULOSKELETAL: No joint swelling or deformity. EXTREMITIES: No cyanosis, clubbing, or pedal edema. NEUROLOGICAL: Gross neurological examination did not reveal any focal deficits. SKIN: No rashes. Results CBC & Chem 7: 03/30/21 11:39 03/30/21 11:39 Labs: Abnormal Lab Results - Last 24 Hours (Table) 03/30/21 03/30/21 Range/Units 11:39 11:39 RBC 3.87 L (4.30-5.90) m/uL Hgb 12.3 L (13.0-17.5) gm/dL Hct 37.3 L (39.0-53.0) % Sodium 134 L (137-145) mmol/L Creatinine 1.38 H (0.66-1.25) mg/dL Glucose 106 H (74-99) mg/dL Assessment and Plan Plan: Idiopathic pulmonary fibrosis: Patient will need home oxygen unfortunately I'm unable to arrange that at this time patient will be admitted to observation case management will work on discharging him on home oxygen with follow-up with pulmonary as an outpatient will need further workup as an outpatient. D-dimer is being obtained for Level Is Being up and Although Clinically Patient Doesn't Appear to Have Pneumonia at This Time. Pulmonary Will Evaluated the Patient. -Chronic hypoxic respiratory failure will require 2 L of oxygen. -Acute renal failure possibly: Patient was started on IV fluids and repeat basic metabolic profile tomorrow patient was started on 100 mL of normal saline -Coronary artery disease -ST of prostate cancer in remission Hypertension -Hyperlipidemia
[2021-03-30] MEDS: SODIUM CHLORIDE 0.9% 1,000 ML IV SCH (18:04)
--- NOTE | 2021-03-30 19:30 | CT ---
EXAMINATION TYPE: CT chest wo con DATE OF EXAM: 03/30/2021 COMPARISON: Chest CT scan 01/27/2017 HISTORY: Shortness of breath. CT DLP: 559.1 mGycm Automated exposure control for dose reduction was used. Supine and prone images of the chest were obtained. There is extensive peripheral reticular pulmonary infiltrates. Heart size is normal. There are no hil ar masses. I see no mediastinal adenopathy. Thoracic aorta is atheromatous. There is some mild peribr onchial thickening in the lower lobes. There is no sign of a suspicious pulmonary mass. There is mild bronchiectasis in the lower lobes. IMPRESSION: Extensive reticular interstitial pulmonary infiltrates are more peripheral and show honeycomb pattern and consistent with advanced pulmonary interstitial fibrosis. Mild bronchiectasis. There is some pro gression of the chronic lung disease compared to old exam. Mild pulmonary emphysema with bullous dise ase at the lung apices.
[2021-03-31] MEDS: SODIUM CHLORIDE 0.9% 1,000 ML IV SCH (02:31)
[2021-03-31 07:23] VITALS: BP 127/69; PULSE 59; RESP 18; TEMP 97.4
--- NOTE | 2021-03-31 08:56 | P.PN ---
Progress Note - Text Progress Note Date: 03/31/21 03/31/2021 Patient will require 3 L of oxygen via nasal cannula 247 in order to be able to manage his pulmonary fibrosis once discharged. Prescription provided to case management.
[2021-03-31] MEDS ORDERED: ASPIRIN 81 MG PO SCH (09:00)
[2021-03-31] MEDS ORDERED: lisinopriL 10 MG TAB PO SCH (09:00)
[2021-03-31] MEDS ORDERED: METOPROLOL SUCCINATE (ER) 25 MG TAB.ER.24H PO SCH (09:00)
[2021-03-31] MEDS ORDERED: ATORVASTATIN 20 MG TAB PO SCH (09:00)
--- NOTE | 2021-03-31 12:55 | P.PN ---
Subjective Progress Note Date: 03/31/21 Principal diagnosis: Acute hypoxic respiratory failure secondary to IPF 85-year-old male patient presents to the ED with worsening shortness of breath. The patient was admitted as he was found to be dyspneic and hypoxic and he was referred to the emergency department. Note that the patient gives a long history of pulmonary fibrosis. There is a CAT scan of the chest back in 2017 that indicated pulmonary fibrosis which was more consistent with IPF. Nevertheless, the patient has not seen a piano case maker on a regular basis. He was checking his O2 at home and he was noticing lower pulse ox progressively and his pulse ox was as low as 86%. He shortness of breath has been progressively getting worse over the years. There is no acute worsening in dyspnea. He has limited chronic cough. No significant sputum production. No pain. No pleurisy. No hemoptysis. No swelling lower extremities. No recurrent pneumonias. He came into the emergency room a chest x-ray was not was typical for pulmonary fibrosis. The patient has undergone his COVID-19 vaccination. His COVID-19 testing came back negative. He has a creatinine of 1.3 and the patient is a known case of prostate cancer. Troponins are negative. The proBNP level is 1540. The patient is seen today in 03/31/2021 in follow-up on the regular medical floor. He is currently resting comfortably in bed. Awake and alert in no acute distress. He denies any worsening shortness of breath, cough or congestion. Computed tomography scan of the chest reveals extensive reticular interstitial pulmonary infiltrates more peripheral and show honeycomb pattern and consistent with advanced pulmonary interstitial fibrosis. Mild bronchiectasis. There is some progression of the chronic lung disease compared to previous exam of January 2017. Emphysema with bullous disease at the apices. He is currently maintain ing good O2 saturations in the mid 90s on 3 L/m per nasal cannula. The patient does qualify for home oxygen and this has been set up thru [facility]. He is quite adamant about going home today. Objective - Vital Signs Vital signs: Vital Signs Temp 97.4 F L 03/31/21 07:00 Pulse 59 L 03/31/21 07:00 Resp 18 03/31/21 07:00 BP 127/69 03/31/21 07:00 Pulse Ox 99 03/31/21 07:00 Intake & Output 03/30/21 03/31/21 03/31/21 18:59 06:59 18:59 Intake Total 0 Balance 0 Weight 63.503 kg Intake: Oral 0 Other: Voiding Method Toilet # Voids 4 - Exam GENERAL EXAM: Alert, pleasant 85-year-old gentleman, on 3 L nasal cannula,, comfortable in no apparent distress. HEAD: Normocephalic. EYES: Normal reaction of pupils, equal size. NOSE: Clear with pink turbinates. THROAT: No erythema or exudates. NECK: No masses, no JVD. CHEST: No chest wall deformity. LUNGS: Equal air entry with coarse Velcro crackles in the bilateral bases CVS: S1 and S2 normal with no audible murmur, regular rhythm. ABDOMEN: No hepatosplenomegaly, normal bowel sounds, no guarding or rigidity. SPINE: No scoliosis or deformity SKIN: No rashes CENTRAL NERVOUS SYSTEM: No focal deficits, tone is normal in all 4 extremities. EXTREMITIES: There is no peripheral edema. No clubbing, no cyanosis. Peripheral pulses are intact. - Labs CBC & Chem 7: 03/30/21 11:39 03/30/21 11:39 Labs: Abnormal Lab Results - Last 24 Hours (Table) 03/30/21 Range/Units 17:48 D-Dimer 5.36 H (<0.60) mg/L FEU Assessment and Plan Assessment: 1 Acute on chronic hypoxemic respiratory failure secondary to advanced interstitial pulmonary fibrosis. The patient has chronic pulmonary fibrosis and the dates back to at least 2016 based on the previous CAT scan of the chest. Computed tomography scan of the chest from 03/30/2021 revealed extensive reticular interstitial pulmonary infiltrates more peripheral and showed honeycomb pattern and consistent with advanced pulmonary interstitial fibrosis. There is mild bronchiectasis. There is some progression of the chronic lung disease compared to the previous exam 01/27/2017. There is mild pulmonary emphysema with bullous disease at the lung apices. 2 Chronic hypoxic respiratory failure. The patient reports that he was hypoxemic even an outpatient basis for quite some time. He does not have home oxygen. There may be some interval progression with the use in terms of his exercise capacity and oxygenation and the patient is currently oxygen dependent. No signs of any acute decompensation at this point in time. No signs of any acute pneumonia. COVID-19 vaccinations were obtained. The patient does qualify for home oxygen. 3 Chronic kidney disease, creatinine is at 1.3. 4 Remote history of myocardial infarction related to underlying coronary artery disease and this occurred more than 20 years ago 5 Prostate cancer 6 Hypertension 7 Hyperlipidemia Plan: The patient was seen and evaluated by Dr. Valery HOLLAND scan reviewed The patient does qualify for home oxygen This is been set up through [facility] for discharge today Follow-up in our office in 1-2 weeks' time I, the cosigning physician, performed a history & physical examination of the patient. Lungs sounds with coarse Velcro crackles in the bilateral bases. Maintaining good O2 saturations in the 90s on 3 L/m per nasal cannula. I discussed the assessment and plan of care with my nurse practitioner, Nichelle Mary. I attest to the above note as dictated by her.
--- NOTE | 2021-04-01 10:01 | P.DS ---
Providers Date of admission: 03/30/21 14:19 Expected date of discharge: 04/01/21 Attending physician: Coleman Diaz Consults: 03/30/21 14:15 Consult Physician Routine Consulting Provider: Connor Rasmussen Consult Reason/Comments: hypoxic respiratory failure Do you want consulting provider notified?: Yes Primary care physician: [facility] Hospital Course: Final diagnosis -Idiopathic pulmonary fibrosis -Chronic hypoxic respiratory failure will require 3 L of oxygen. -Acute renal failure possibly -Coronary artery disease -History of prostate cancer in remission -Hypertension -Hyperlipidemia Discharge disposition Patient is being discharged in a stable condition with guarded prognosis to home. Patient will follow-up with Dr. Gokul Guerrero in the outpatient setting upon discharge. Patient is to follow up with pulmonary as scheduled. Prescription provided to monitor kidney functions as creatinine was slightly elevated. Total time taken is greater than 35 minutes. Hospital course Patient is a pleasant 85-year-old male 's [facility] compensative worsening shortness of breath. Patient does have history of pulmonary fibrosis. Patient does have a pulmonary fibrosis consistent with IPF. Patient has not seen a tester semiconductor packages recently. Patient was saturating at 86%. Patient is presently on 2 L of oxygen saturating well at this time. Patient will need home oxygen. Patient also has probably acute renal failure with creatinine of 1.36 in 2019 his creatinine is within normal lives patient is on the KENNY inhibitor which is being continued for now because of his elevated blood pressure. Patient was started on on the systemic steroids although may not be beneficial because he has IPF. Patient will need outpatient evaluation with pulmonary function testing and pulmonary follow-up as an outpatient. Pulmonary was consulted here. Patient does have history of prostate cancer. Patient's BNP is 1540. Patient chart as of breath has been getting worse for few years. Patient was having some dry cough. Patient has reticulonodular densities consistent with pulmonary fibrosis. Patient quit smoking 20 years ago denied any history of COPD. 03/31/2021 Patient is seen and evaluated in follow-up and has been evaluated by pulmonary and recommending outpatient follow-up and patient is asking when he can go home. Patient has received oxygen supplies and will continue 3 L of oxygen via nasal cannula in order to be able to manage his pulmonary fibrosis. Patient does see Dr. Gokul Guerrero and states he also follows at the [facility] a few times a year. Currently no reports of chest pain, worsening shortness of breath, or palpitations. Patient is afebrile. No reports of nausea or vomiting and patient is tolerating diet. Patient will be discharged home today. On exam vital signs are stable. Cardio S1, S2 are muffled. Respiratory system shows diminished breath sounds at the bases with no wheezing or rhonchi noted. Abdomen is soft and nontender. Nervous system shows no focal deficits. Please refer to medication reconciliation sheet for a list of medications. Patient Condition at Discharge: Fair Plan - Discharge Summary Discharge Rx Participant: No New Discharge Prescriptions: Continue lisinopriL [Zestril] 10 mg PO DAILY Atorvastatin [Lipitor] 20 mg PO DAILY Aspirin [Adult Low Dose Aspirin EC] 81 mg PO DAILY Metoprolol Succinate (ER) [Toprol XL] 25 mg PO DAILY Discharge Medication List Aspirin [Adult Low Dose Aspirin EC] 81 mg PO DAILY 02/14/16 [History] Atorvastatin [Lipitor] 20 mg PO DAILY 02/14/16 [History] lisinopriL [Zestril] 10 mg PO DAILY 02/14/16 [History] Metoprolol Succinate (ER) [Toprol XL] 25 mg PO DAILY 05/13/19 [History] Follow up Appointment(s)/Referral(s): Gokul Guerrero DO [Family Provider] - 1-2 Days (call office for follow up appt) [facility] [employer] [NON-STAFF] - As Needed (Supplier of Home Oxygen) Connor Rasmussen MD [STAFF PHYSICIAN] - 04/15/21 3:00 pm [facility],Clinic [Primary Care Provider] - 1-2 days Ambulatory/Diagnostic Orders: Basic Metabolic Panel [LAB.AMB] Time Frame: 2 Days, Location: None Selected Patient Instructions/Handouts: Using Oxygen at Home (DC), Hypoxia (GEN) Activity/Diet/Wound Care/Special Instructions: Activity Limited until follow-up Follow-up with primary care provider upon discharge Continue current diet Follow-up with pulmonary outpatient Continue 3 L of oxygen via nasal cannula Repeat labs in 2-3 days to monitor kidney functions Discharge Disposition: HOME SELF-CARE
== END 2021-03-31 12:44 | disposition home or self-care (01) ==
LOC: EC 10:51 → 6NMEDSUR 14:19
PROVIDERS: ADMIT Internal Medicine; ATTEND Internal Medicine
DX: J84.112 Idiopathic pulmonary fibrosis (principal); J96.21 Acute and chronic respiratory failure with hypoxia; N17.9 Acute kidney failure, unspecified; I25.10 Atherosclerotic heart disease of native coronary artery without angina pectoris; I12.9 Hypertensive chronic kidney disease with stage 1 through stage 4 chronic kidney disease, or unspecified chronic kidney disease; N18.9 Chronic kidney disease, unspecified; Z20.822 Contact with and (suspected) exposure to COVID-19; E78.5 Hyperlipidemia, unspecified; R00.1 Bradycardia, unspecified; J43.9 Emphysema, unspecified; J47.9 Bronchiectasis, uncomplicated; I25.2 Old myocardial infarction; Z79.899 Other long term (current) drug therapy; Z79.82 Long term (current) use of aspirin; Z87.891 Personal history of nicotine dependence; Z85.46 Personal history of malignant neoplasm of prostate
CPT/HCPCS: 99291; 36415; 93005; 85379; 83880; 80048; 84484; 85025; 87635; 71045; 71250; G0378 ×2; J8540

== ENCOUNTER 2021-09-27 19:03 | Inpatient (IN) | payer OTHER, MEDICARE, BC ==
--- NOTE | 2021-09-27 20:21 | ED ---
General Adult HPI - General Chief complaint: Syncope Stated complaint: SOB/Diarrhea Time Seen by Provider: 09/27/21 20:11 Source: patient, RN notes reviewed, old records reviewed Mode of arrival: EMS Limitations: no limitations - History of Present Illness Initial comments: I evaluated the patient when he was placed in a room. Patient is an 85-year-old male with past medical history remarkable for remote VT back in the , chronic hypoxic respiratory failure on home nasal cannula oxygen 3 L who presents emergency Department following a syncopal episode at home. Patient states that his oxygen tank ran out as he was at a for a family members earlier today. States that by the time he got home action tank is low. He was attempting to put it back on when he experiences syncopal episode. Denies biting his tongue or expressing urinary incontinence. He was able to get assistance restarting his oxygen. Has a history of chronic hypoxemic respiratory failure. He states one suction was restarted, he has no acute complaints. Describes the syncopal episode as vision going black. Denies any chest pain, abdominal pain, nausea, vomiting. States he did not hit his head. Denies being on blood thinners. He otherwise has no acute complaints at this time. Denies any fevers, chills, sick contacts.Denies any worsening leg swelling, history of blood clots, orthopnea, PND. - Related Data Home Medications Medication Instructions Recorded Confirmed Aspirin [Adult Low Dose Aspirin EC] 81 mg PO DAILY 02/14/16 09/27/21 Atorvastatin [Lipitor] 20 mg PO DAILY 02/14/16 09/27/21 lisinopriL [Zestril] 10 mg PO DAILY 02/14/16 09/27/21 Metoprolol Succinate (ER) [Toprol 25 mg PO DAILY 05/13/19 09/27/21 XL] Allergies Allergy/AdvReac Type Severity Reaction Status Date / Time No Known Allergies Allergy Verified 09/27/21 22:16 Review of Systems ROS Statement: Those systems with pertinent positive or pertinent negative responses have been documented in the HPI. Review of Systems: CONST: Denies fever EYES: Denies blurry vision ENT: Denies nasal congestion C/V: Denies Chest pain RESP: Denies shortness of breath GI: Denies abdominal pain : Denies dysuria SKIN: Denies rash. MSK: Denies joint pain. NEURO: Denies headache ROS Other: All systems not noted in ROS Statement are negative. Past Medical History Past Medical History: Coronary Artery Disease (CAD), Hyperlipidemia, Hypertension, Myocardial Infarction (VT) Additional Past Medical History / Comment(s): PROSTATE CANCER just monitoring , history of pulmonary fibrosis Last Myocardial Infarction Date:: 1995 History of Any Multi-Drug Resistant Organisms: None Reported Past Surgical History: Heart Catheterization, Hernia Repair Past Anesthesia/Blood Transfusion Reactions: No Reported Reaction Past Psychological History: No Psychological Hx Reported Smoking Status: Never smoker Past Alcohol Use History: Daily Past Drug Use History: None Reported - Past Family History Father Family Medical History: Cancer General Exam - General Exam Comments Initial Comments: General: Appears in no acute distress. HEAD: Normal with no signs of head trauma. EYES: PERRLA, EOMI, conjunctiva normal, no discharge. ENT: Hearing grossly intact, normal oropharynx. RESPIRATORY: Clear breath sounds bilaterally. No wheezes, rales, or rhonchi. No increased work of breathing at this time. C/V: Regular rate and rhythm. S1 and S2 auscultated, no edema, peripheral pulses 2+ and intact throughout ABD: Abd is soft, nontender, nondistended EXT: Normal range of motion, no obvious deformity SKIN: No rashes or lesions observed on exposed skin. NEURO: Alert and oriented x 4. Cranial nerves II-XII intact. No focal sensory or strength deficits. GCS is 15. NIH is 0. Limitations: no limitations Course Vital Signs 09/27/21 09/27/21 19:34 22:46 Temperature 98.4 F Pulse Rate 92 86 Respiratory 24 16 Rate Blood Pressure 100/58 127/83 O2 Sat by Pulse 92 L 94 L Oximetry Medical Decision Making - Medical Decision Making Based on patient's presentation and physical exam, he apparently had a syncopal episode likely secondary to hypoxia from not being able to put on his home o xygen. However we will obtain a cardiac workup quitting troponin, EKG, chest x- ray. Patient was in agreement this plan. EKG revealed new-onset T wave inversions but no ST segment changes in the inf erior leads. Laboratory studies were remarkable for a mild AK eye with a creatinine of 1.7, as well as an elevated troponin of 0.329. Patient has a macrocytic anemia with a hemoglobin 11.7 which is chronic. Remainder the labs are unremarkable. Brain CT showed no signs of acute intracranial process. There are old infarcts. Chest x-ray reveals known pulmonary fibrosis. Patient was given an aspirin. I did update the patient regarding his labs and EKG. I updated him on his imaging. I explained that I would like to admit him to the hospital for a NSTEMI and he was in agreement. I consulted cardiology and spoke with Dr. Garcia over the phone who was in agreement with the plan. We will trend troponins. Patient was started on a heparin drip. I spoke with the admitting team under Dr. Barfield who accepted the patient. Patient was therefore admitted in serious condition to telemetry bed. - Lab Data Result diagrams: 09/27/21 20:45 09/27/21 20:45 Lab Results 09/27/21 09/27/21 09/27/21 Range/Units 20:45 20:45 20:45 WBC 6.9 (3.8-10.6) k/uL RBC 3.51 L (4.30-5.90) m/uL Hgb 11.7 L (13.0-17.5) gm/dL Hct 35.6 L (39.0-53.0) % MCV 101.4 H (80.0-100.0) fL MCH 33.5 (25.0-35.0) pg MCHC 33.0 (31.0-37.0) g/dL RDW 14.3 (11.5-15.5) % Plt Count 175 (150-450) k/uL MPV 7.9 Neutrophils % 82 % Lymphocytes % 12 % Monocytes % 4 % Eosinophils % 1 % Basophils % 0 % Neutrophils # 5.7 (1.3-7.7) k/uL Lymphocytes # 0.8 L (1.0-4.8) k/uL Monocytes # 0.3 (0-1.0) k/uL Eosinophils # 0.1 (0-0.7) k/uL Basophils # 0.0 (0-0.2) k/uL Macrocytosis Slight PT 10.7 (9.0-12.0) sec INR 1.0 (<1.2) APTT 20.8 L (22.0-30.0) sec Sodium 138 (137-145) mmol/L Potassium 4.3 (3.5-5.1) mmol/L Chloride 104 (98-107) mmol/L Carbon Dioxide 19 L (22-30) mmol/L Anion Gap 15 mmol/L BUN 34 H (9-20) mg/dL Creatinine 1.70 H (0.66-1.25) mg/dL Est GFR (CKD-EPI)AfAm 42 (>60 ml/min/1.73 sqM) Est GFR (CKD-EPI)NonAf 36 (>60 ml/min/1.73 sqM) Glucose 73 L (74-99) mg/dL Calcium 9.8 (8.4-10.2) mg/dL Total Bilirubin 0.7 (0.2-1.3) mg/dL AST 79 H (17-59) U/L ALT 53 H (4-49) U/L Alkaline Phosphatase 70 (38-126) U/L Troponin I (0.000-0.034) ng/mL Total Protein 7.1 (6.3-8.2) g/dL Albumin 3.8 (3.5-5.0) g/dL 09/27/21 Range/Units 20:45 WBC (3.8-10.6) k/uL RBC (4.30-5.90) m/uL Hgb (13.0-17.5) gm/dL Hct (39.0-53.0) % MCV (80.0-100.0) fL MCH (25.0-35.0) pg MCHC (31.0-37.0) g/dL RDW (11.5-15.5) % Plt Count (150-450) k/uL MPV Neutrophils % % Lymphocytes % % Monocytes % % Eosinophils % % Basophils % % Neutrophils # (1.3-7.7) k/uL Lymphocytes # (1.0-4.8) k/uL Monocytes # (0-1.0) k/uL Eosinophils # (0-0.7) k/uL Basophils # (0-0.2) k/uL Macrocytosis PT (9.0-12.0) sec INR (<1.2) APTT (22.0-30.0) sec Sodium (137-145) mmol/L Potassium (3.5-5.1) mmol/L Chloride (98-107) mmol/L Carbon Dioxide (22-30) mmol/L Anion Gap mmol/L BUN (9-20) mg/dL Creatinine (0.66-1.25) mg/dL Est GFR (CKD-EPI)AfAm (>60 ml/min/1.73 sqM) Est GFR (CKD-EPI)NonAf (>60 ml/min/1.73 sqM) Glucose (74-99) mg/dL Calcium (8.4-10.2) mg/dL Total Bilirubin (0.2-1.3) mg/dL AST (17-59) U/L ALT (4-49) U/L Alkaline Phosphatase (38-126) U/L Troponin I 0.329 H* (0.000-0.034) ng/mL Total Protein (6.3-8.2) g/dL Albumin (3.5-5.0) g/dL - EKG Data -: EKG Interpreted by Me EKG Comments: 12-lead Electrocardiogram Interpretation Note EKG was reviewed and interpreted by myself. 12-lead ECG performed at 2001 is interpreted by me as revealing normal sinus rhythm at a rate of 82 beats per minute. [place] is normal. [place] interval is 180 ms, QRS duration is 82 ms, QTc is 440 ms. There are new T-wave inversions in lead 2, 3, aVF without any ST segment elevations or depressions.. . R wave progression across the precordium was satisfactory. There may be mild ischemic changes secondary to the T-wave inversions in 2, 3, aVF.. Frequent PVCs are present. Disposition Clinical Impression: RUDY (acute kidney injury), NSTEMI (non-ST elevated myocardial infarction), Syncope, Pulmonary fibrosis, Chronic respiratory failure with hypoxia Disposition: ADMITTED IP TO THIS HOSP Condition: Serious
[2021-09-27 21:23] LABS: Basophils % (A) 0 %; Eosinophils # (A) 0.1 k/uL (0-0.7); Eosinophils % (A) 1 %; HCT 35.6 % (39.0-53.0); HGB 11.7 gm/dL (13.0-17.5); Lymphocytes # (A) 0.8 k/uL (1.0-4.8); Lymphocytes % (A) 12 %; MCH 33.5 pg (25.0-35.0); MCV 101.4 fL (80.0-100.0); Macrocytosis Slight; Mean Platelet Volume 7.9; Monocytes # (A) 0.3 k/uL (0-1.0); Monocytes % (A) 4 %; Neutrophils # (A) 5.7 k/uL (1.3-7.7); Neutrophils % (A) 82 %; Platelet Count 175 k/uL (150-450); RBC 3.51 m/uL (4.30-5.90); RDW 14.3 % (11.5-15.5); WBC 6.9 k/uL (3.8-10.6)
[2021-09-27 21:37] LABS: Albumin 3.8 g/dL (3.5-5.0); Calcium 9.8 mg/dL (8.4-10.2); Potassium 4.3 mmol/L (3.5-5.1); Total Bilirubin 0.7 mg/dL (0.2-1.3); Total Protein 7.1 g/dL (6.3-8.2)
[2021-09-27 21:54] LABS: Prothrombin Time 10.7 sec (9.0-12.0)
--- NOTE | 2021-09-27 21:59 | XR ---
EXAMINATION TYPE: XR chest 2V DATE OF EXAM: 09/27/2021 COMPARISON: 03/30/2021 HISTORY: Short of breath TECHNIQUE: FINDINGS: There is coarse interstitial infiltrate throughout both lungs. Heart size is normal. There are no hilar masses. There are chest leads. Bony thorax is intact. IMPRESSION: Pulmonary interstitial fibrosis. No significant change compared to old exam. No heart reynaldo lure.
[2021-09-27 22:02] LABS: Partial Thromboplastin Time 20.8 sec (22.0-30.0)
--- NOTE | 2021-09-27 22:09 | CT ---
EXAMINATION TYPE: CT brain wo con DATE OF EXAM: 09/27/2021 COMPARISON: 04/25/2010 HISTORY: syncope CT DLP: 1084.4 mGycm Automated exposure control for dose reduction was used. There is cerebral cortical atrophy. There is no mass effect nor midline shift. There is no sign of in tracranial hemorrhage. There is hypodensity in the periventricular white matter. This is more noticea ble in the right parietal lobe. Calvarium is intact. IMPRESSION: Cerebral atrophy. Chronic small vessel ischemia. Old lacunar infarcts. There is progression of white matter disease compared to old exam. No hemorrhage.
[2021-09-27] MEDS ORDERED: SODIUM CHLORIDE 0.9% 1,000 ML IV STA (22:21)
[2021-09-27] MEDS ORDERED: HEPARIN SODIUM 1,000 UN/ML (10ML VL) IV PRN (22:21)
[2021-09-27] MEDS ORDERED: HEPARIN SODIUM 1,000 UN/ML (10ML VL) IV ONE (22:21)
[2021-09-27] MEDS ORDERED: NALOXONE 0.4 MG/ML 1 ML VIAL IV PRN (22:24)
[2021-09-27] MEDS ORDERED: ASPIRIN 81 MG PO STA (22:26)
[2021-09-27] MEDS: HEPARIN SOD,PORK IN 0.45% NACL 25,000 UNIT in 0.45% NACL 1 250ML.BAG IV SCH (22:39)
[2021-09-28] MEDS: MAG HYDROX/AL HYDROX/SIMETH 30 ML CUP PO SCH ×5 (00:44→21:41)
[2021-09-28 01:19] LABS: Appearance,Urine Clear (Clear); Bilirubin,Urine Negative (Negative); Blood,Urine Negative (Negative); Color,Urine Yellow; Glucose,Urine (UA) Negative (Negative); Hyaline Casts,Urine 77 /lpf (0-2); Ketones,Urine 1+ (Negative); Leukocyte Esterase,Urine Negative (Negative); Mucus,Urine Rare /hpf; Nitrite,Urine Negative (Negative); Protein,Urine 1+ (Negative); RBC,Urine 1 /hpf (0-5); Specific Gravity,Urine 1.023 (1.001-1.035); Squamous Epithelial Cell,Urine <1 /hpf (0-4); Urobilinogen,Urine <2.0 mg/dL (<2.0); WBC,Urine 2 /hpf (0-5)
[2021-09-28 04:11] LABS: Basophils % (A) 0 %; Eosinophils # (A) 0.1 k/uL (0-0.7); Eosinophils % (A) 2 %; HCT 33.6 % (39.0-53.0); HGB 11.3 gm/dL (13.0-17.5); Lymphocytes # (A) 1.5 k/uL (1.0-4.8); Lymphocytes % (A) 22 %; MCH 33.9 pg (25.0-35.0); MCHC 33.6 g/dL (31.0-37.0); MCV 100.9 fL (80.0-100.0); Macrocytosis Slight; Mean Platelet Volume 7.8; Monocytes # (A) 0.5 k/uL (0-1.0); Monocytes % (A) 7 %; Neutrophils # (A) 4.6 k/uL (1.3-7.7); Neutrophils % (A) 68 %; Platelet Count 146 k/uL (150-450); RBC 3.33 m/uL (4.30-5.90); RDW 13.7 % (11.5-15.5); WBC 6.8 k/uL (3.8-10.6)
[2021-09-28 04:23] LABS: INR 1.1 (<1.2); Partial Thromboplastin Time 43.8 sec (22.0-30.0); Prothrombin Time 11.2 sec (9.0-12.0)
[2021-09-28 04:44] LABS: Calcium 9.5 mg/dL (8.4-10.2); Potassium 4.4 mmol/L (3.5-5.1)
--- NOTE | 2021-09-28 08:34 | P.CRDCN ---
History of Present Illness History of present illness: HISTORY OF PRESENTING ILLNESS This is a pleasant 85-year-old male past medical history significant for coronary artery disease status post PCI to RCA, COPD, pulmonary fibrosis, chronic hypoxic respiratory failure on home O2, hypertension, dyslipidemia, ischemic cardiomyopathy, aortic regurgitation, mitral regurgitation, chronic kidney disease. He follows in the office with Dr. Garcia. We have been asked to see in consultation for syncope and possible NSTEMI. Patient presents emergency department after a syncopal episodes yesterday. He was at his sister's , and brought his oxygen tanks, however, he ran out of oxygen. He did make it home, on his way into his house, he states he loss consciousness and "passed out", unknown downtime. However, patient states that he was not out long. He states he did have incontinence of bladder and stool. He called his neighbor, EMS was called and he was brought to the emergency department. He endorses having increased shortness of breath with activity over the past 2 weeks. He states he does get lightheaded when he notices his oxygen level is low. He states when his lies down his breathing improves. He denies any chest pain, palpitations, lower extremity edema. He denies orthopnea or PND. He normally wears 3L of O2. DIAGNOSTICS EKG reveals sinus rhythm, PVCs, H 82, T-wave inversions in inferior leads, ST flattening in leads V4-V6. poor R wave progression Echocardiogram in the office 04/2021- EF 35%, mild LVH, mild aortic regurgitation, mild to moderate mitral regurgitation, mild to moderate tricuspid regurgitation. mild increased PASP 38mmHg. Last Cardiac Catheterization 2004 revealed after the origin of the diagonal branch, mid LAD with 50-55% stenosis, obtuse marginal branch has about 50% stenosis. After the origin of the PLV branch and distal circumflex has about 6 0% stenosis, mid RCA has 50% stenosis. Recommend maximal medical therapy at that time 04/2020- Lexiscan stress test- negative for stress induced ischemia, prior inferiorlateral wall myocardial infarction. Study is unchanged from prior testing. Telemetry tracings indicate sinus mechanism HR 60s Chest xray pulmonary interstitial fibrosis. No significant change no heart reynaldo lure. CT Brain- cerebral atrophy, chronic small vessel ischemia. Old lacuar infarct. Progression of white matter disease compared to old exam Laboratory reviewed, troponin 0.3, 0.9, 1.1, sodium 139, potassium 4.4, BUN 35, serum creatinine 1.6, WBC 6.8, hemoglobin 11.3, platelets 146, COVID-19 PCR negative Current home medications include lisinopril 10 mg daily, metoprolol succinate 25 mg daily, atorvastatin 20 mg daily, aspirin 81mg daily REVIEW OF SYSTEMS At the time of my exam: CONSTITUTIONAL: Denies fever or chills. +syncope CARDIOVASCULAR: Denies chest pain, +shortness of breath, Denies orthopnea, PND or palpitations. RESPIRATORY: Denies cough. GASTROINTESTINAL:+ diarrhea Denies abdominal pain, constipation, nausea or vomiting. MUSCULOSKELETAL: Denies myalgias. NEUROLOGIC: Denies numbness, tingling, headache or weakness. ENDOCRINE: Denies fatigue, weight change, polydipsia or polyurina. GENITOURINARY: Denies burning, hematuria or urgency with micturation. HEMATOLOGIC: Denies history of anemia or bleeding. PHYSICAL EXAMINATION Blood pressure 125/78, heart rate 67, afebrile, oxygen saturation is 94% on 3 L nasal cannula CONSTITUTIONAL: No apparent distress. HEENT: Head is normocephalic. Pupils are equal, round. Sclerae anicteric. Mucous membranes of the mouth are moist. No JVD. No carotid bruit. CHEST EXAMINATION: Lungs are diminished in bilateral bases to auscultation.No wheezing or crackles noted. No chest wall tenderness is noted on palpation or with deep breathing. HEART EXAMINATION: Regular rate and rhythm. S1, S2 heard. Systolic ejection murmur, No gallops or rub. ABDOMEN: Soft, nontender. Positive bowel sounds. EXTREMITIES: 2+ peripheral pulses, no lower extremity edema and no calf tenderness. SKIN: warm, dry NEUROLOGIC EXAMINATION: Patient is awake, alert and oriented x3. ASSESSMENT Elevated troponin, likely supply and demand mismatch type 2 UT related to hypoxia Syncopal episode, likely due to hypoxia Coronary artery disease status post PCI to RCA COPD Pulmonary fibrosis Chronic hypoxic respiratory failure Hypertension Dyslipidemia Ischemic cardiomyopathy Acute on Chronic kidney disease PLAN Continue IV heparin drip for 24 hours. Continue aspirin 81mg daily We will maximize patient's medical therapy at this time. Increase atorvastatin 40mg daily Decrease lisinopril to 5mg daily Increase metoprolol succinate to 50mg daily Further recommendations based on clinical course Follow up with Dr. Garcia on discharge Thank you kindly for this consultation. Nurse Practitioner note has been reviewed, I agree with a documented findings and plan of care. Patient was seen and examined. Past Medical History Past Medical History: Coronary Artery Disease (CAD), Hyperlipidemia, Hypertensio n, Myocardial Infarction (UT) Additional Past Medical History / Comment(s): PROSTATE CANCER just monitoring , history of pulmonary fibrosis Last Myocardial Infarction Date:: 1995 History of Any Multi-Drug Resistant Organisms: None Reported Past Surgical History: Heart Catheterization, Hernia Repair Past Anesthesia/Blood Transfusion Reactions: No Reported Reaction Past Psychological History: No Psychological Hx Reported Smoking Status: Never smoker Past Alcohol Use History: Daily Past Drug Use History: None Reported - Past Family History Father Family Medical History: Cancer Medications and Allergies Home Medications Medication Instructions Recorded Confirmed Type Aspirin [Adult Low Dose Aspirin EC] 81 mg PO DAILY 02/14/16 09/27/21 History Atorvastatin [Lipitor] 20 mg PO DAILY 02/14/16 09/27/21 History lisinopriL [Zestril] 10 mg PO DAILY 02/14/16 09/27/21 History Metoprolol Succinate (ER) [Toprol 25 mg PO DAILY 05/13/19 09/27/21 History XL] Allergies Allergy/AdvReac Type Severity Reaction Status Date / Time No Known Allergies Allergy Verified 09/27/21 22:16 Physical Exam Vitals: Vital Signs Temp Pulse Resp BP Pulse Ox 09/28/21 04:40 67 18 125/78 94 L 09/28/21 00:46 78 18 130/81 92 L 09/27/21 22:46 86 16 127/83 94 L 09/27/21 19:34 98.4 F 92 24 100/58 92 L Intake and Output 09/27/21 09/28/21 09/28/21 22:59 06:59 14:59 Intake Total 53.541 Balance 53.541 Intake: Intake, IV Titration 53.541 Amount Heparin Sod,Pork in 0.45% 53.541 NaCl 25,000 unit In 0.45 % NaCl 1 250ml.bag @ 12 UNITS/KG/HR 7.893 mls/hr IV .Q24H [facility], [facility]–1983 Rx#: [id number] Other: Weight 65.771 kg Results 09/28/21 03:33 09/28/21 03:33 Cardiac Enzymes 09/27/21 09/27/21 09/28/21 Range/Units 20:45 20:45 00:26 AST 79 H (17-59) U/L Troponin I 0.329 H* 0.907 H* (0.000-0.034) ng/mL 09/28/21 Range/Units 03:33 AST (17-59) U/L Troponin I 1.190 H* (0.000-0.034) ng/mL Coagulation 09/27/21 09/28/21 Range/Units 20:45 03:33 PT 10.7 11.2 (9.0-12.0) sec APTT 20.8 L 43.8 H (22.0-30.0) sec CBC 09/27/21 09/28/21 Range/Units 20:45 03:33 WBC 6.9 6.8 (3.8-10.6) k/uL RBC 3.51 L 3.33 L (4.30-5.90) m/uL Hgb 11.7 L 11.3 L (13.0-17.5) gm/dL Hct 35.6 L 33.6 L (39.0-53.0) % Plt Count 175 146 L (150-450) k/uL Comprehensive Metabolic Panel 09/27/21 09/28/21 Range/Units 20:45 03:33 Sodium 138 139 (137-145) mmol/L Potassium 4.3 4.4 (3.5-5.1) mmol/L Chloride 104 109 H (98-107) mmol/L Carbon Dioxide 19 L 23 (22-30) mmol/L BUN 34 H 35 H (9-20) mg/dL Creatinine 1.70 H 1.65 H (0.66-1.25) mg/dL Glucose 73 L 88 (74-99) mg/dL Calcium 9.8 9.5 (8.4-10.2) mg/dL AST 79 H (17-59) U/L ALT 53 H (4-49) U/L Alkaline Phosphatase 70 (38-126) U/L Total Protein 7.1 (6.3-8.2) g/dL Albumin 3.8 (3.5-5.0) g/dL Current Medications Generic Name Dose Route Start Last Admin Trade Name Freq PRN Reason Stop Dose Admin Al Hydroxide/Mg Hydroxide 20 ml 11/24/21 00:30 09/28/21 00:44 Mag Hydrox/Al Hydrox/Simeth 30 Ml Cup PO 20 ml QID [facility]1983 Administration Aspirin 81 mg 09/28/21 09:00 Aspirin 81 Mg PO DAILY [facility]1983 Atorvastatin Calcium 20 mg 09/28/21 09:00 Atorvastatin 20 Mg Tab PO DAILY [facility]–1983 Heparin Sodium (Porcine) 0 unit 09/27/21 22:21 Heparin Sodium 1,000 Un/Ml (10ml Vl) IV PER PROTOCOL PRN Low PTT Protocol Heparin Sodium/Sodium Chloride 250 mls @ 7.893 mls/hr 09/27/21 22:30 09/28/21 05:26 25,000 unit/ Sodium Chloride IV 12 units/kg/hr .Q24H KISHORE 7.893 mls/hr Titration Protocol 12 UNITS/KG/HR Lisinopril 10 mg 09/28/21 09:00 Lisinopril 10 Mg Tab PO DAILY [facility]–1983 Metoprolol Succinate 25 mg 09/28/21 09:00 Metoprolol Succinate (Er) 25 Mg Tab.Er.24h PO DAILY [facility]–1983 Naloxone HCl 0.2 mg 09/27/21 22:24 Naloxone 0.4 Mg/Ml 1 Ml Vial IV Q2M PRN Opioid Reversal Intake and Output 09/27/21 09/28/21 09/28/21 22:59 06:59 14:59 Intake Total 53.541 Balance 53.541 Intake: Intake, IV Titration 53.541 Amount Heparin Sod,Pork in 0.45% 53.541 NaCl 25,000 unit In 0.45 % NaCl 1 250ml.bag @ 12 UNITS/KG/HR 7.893 mls/hr IV .Q24H [facility], 1928–1983 Rx#: [id number] Other: Weight 65.771 kg 09/28/21 03:33 09/28/21 03:33
[2021-09-28] MEDS ORDERED: METOPROLOL SUCCINATE (ER) 25 MG TAB.ER.24H PO SCH (09:00)
[2021-09-28] MEDS ORDERED: lisinopriL 10 MG TAB PO SCH (09:00)
[2021-09-28] MEDS ORDERED: ATORVASTATIN 20 MG TAB PO SCH (09:00)
[2021-09-28] MEDS: lisinopriL 5 MG TAB PO SCH (12:43)
[2021-09-28] MEDS: ASPIRIN 81 MG PO SCH (12:43)
[2021-09-28] MEDS: ATORVASTATIN 40 MG TAB PO SCH (12:43)
[2021-09-28] MEDS: METOPROLOL SUCCINATE (ER) 50 MG TAB.ER.24H PO SCH (12:45)
--- NOTE | 2021-09-28 21:08 | P.HPIM ---
History of Present Illness H&P Date: 09/28/21 Patient is an 85-year-old male with past medical history remarkable for remote [place] back in the , chronic hypoxic respiratory failure on home nasal cannula oxygen 3 L who was admitted from the emergency Department following a syncopal episode at home. Patient states that his oxygen tank ran out as he was at a for a family members earlier today. States that by the time he got home action tank is low. He was attempting to put it back on when he experiences syncopal episode. Denies biting his tongue or expressing urinary incontinence. He was able to get assistance restarting his oxygen. Has a history of chronic hypoxemic respiratory failure. He states one suction was restarted, he has no acute complaints. Describes the syncopal episode as vision going black. Denies any chest pain, abdominal pain, nausea, vomiting. States he did not hit his head. Denies being on blood thinners. He otherwise has no acute complaints at this time. Denies any fevers, chills, sick contacts.Denies any worsening leg swelling, history of blood clots, orthopnea, PND. Review of Systems GENERAL: Patient denies fever. Denies chills. EYES: Denies blurred vision. Denies vision changes. Denies eye pain. EARS, NOSE, MOUTH, & THROAT: Denies headache. Denies sore throat. Denies ear pain. RESPIRATORY: Admits to COPD long-standing history of pulmonary fibrosis and oxygen dependency. CARDIOVASCULAR: Denies chest pain or pressure. Denies palpitations. Denies arrhythmias. GASTROINTESTINAL: Denies abdominal pain. Denies diarrhea. Denies constipation. Denies nausea. Denies vomiting. Denies heartburn. Denies blood in the stool. GENITOURINARY: Denies urinary frequency. Denies burning. Denies dysuria. Denies cloudy urine. Denies blood in the urine. MUSCULOSKELETAL: Denies myalgias. Denies joint swelling. Denies decreased range of motion beyond patients baseline. INTEGUMENTARY: Denies pruitis. Denies rash. PSYCHIATRIC: Denies suicidal or homicial ideations. ENDOCRINE: Denies weight change. Denies polydipsia. Denies polyuria. HEMATOLOGIC: Denies bleeding disorders. Past Medical History Past Medical History: Coronary Artery Disease (CAD), Hyperlipidemia, Hypertension, Myocardial Infarction ([place]) Additional Past Medical History / Comment(s): PROSTATE CANCER just monitoring , history of pulmonary fibrosis Last Myocardial Infarction Date:: 1995 History of Any Multi-Drug Resistant Organisms: None Reported Past Surgical History: Heart Catheterization, Hernia Repair Past Anesthesia/Blood Transfusion Reactions: No Reported Reaction Past Psychological History: No Psychological Hx Reported Smoking Status: Never smoker Past Alcohol Use History: Daily Past Drug Use History: None Reported - Past Family History Father Family Medical History: Cancer Medications and Allergies Home Medications Medication Instructions Recorded Confirmed Type Aspirin [Adult Low Dose Aspirin EC] 81 mg PO DAILY 02/14/16 09/27/21 History Atorvastatin [Lipitor] 20 mg PO DAILY 02/14/16 09/27/21 History lisinopriL [Zestril] 10 mg PO DAILY 02/14/16 09/27/21 History Metoprolol Succinate (ER) [Toprol 25 mg PO DAILY 05/13/19 09/27/21 History XL] Allergies Allergy/AdvReac Type Severity Reaction Status Date / Time No Known Allergies Allergy Verified 09/27/21 22:16 Physical Exam Osteopathic Statement: *. No significant issues noted on an osteopathic structural exam other than those noted in the History and Physical/Consult. Vitals: Vital Signs Temp Pulse Pulse Resp BP BP Pulse Ox 09/28/21 19:59 97.9 F 75 16 91/55 93 L 09/28/21 16:45 98.0 F 74 20 99/56 91 L 09/28/21 14:20 97.7 F 68 20 122/66 89 L 09/28/21 12:00 68 18 115/56 92 L 09/28/21 09:10 97.9 F 77 18 143/65 93 L 09/28/21 08:17 61 20 140/71 97 09/28/21 04:40 67 18 125/78 94 L 09/28/21 00:46 78 18 130/81 92 L 09/27/21 22:46 86 16 127/83 94 L Intake and Output 09/28/21 09/28/21 09/28/21 06:59 14:59 22:59 Intake Total 53.541 240 480 Output Total 300 Balance 53.541 240 180 Intake: Intake, IV Titration 53.541 Amount Heparin Sod,Pork in 0.45% 53.541 NaCl 25,000 unit In 0.45 % NaCl 1 250ml.bag @ 12 UNITS/KG/HR 7.893 mls/hr IV .Q24H [facility] Rx#: [id number] Oral 240 480 Output: Urine 300 Other: Voiding Method Urinal # Voids 0 # Bowel Movements 0 Weight 65.771 kg GENERAL: This is a 85-year-old in no apparent distress at the time of examination. Pleasant and cooperative. HEENT: Head is atraumatic, normocephalic. Pupils are equal, round, and reactive to light. Sclerae anicteric. Conjunctivae are clear. Mucus membranes of the mouth are moist. Neck is supple. RESPIRATORY: Diminished breath sounds with wheezing bilateral CARDIOVASCULAR: Regular rate and rhythm. GASTROINTESTINAL: No distention noted. Abdomen soft and round. Normal active bowel sounds auscultated x 4 quadrants. No pain or tenderness noted upon palpation. INTEGUMENTARY: No cyanosis. No jaundice. No rashes noted. No cellulitis noted. EXTREMITIES: 2+ peripheral pulses. No evidence of peripheral edema. No calf tenderness noted. NEUROLOGIC: Cranial nerves II-XII intact. PSYCHIATRIC: Awake, alert, and oriented X 3. Appropriate affect. Intact judgement and insight. Results CBC & Chem 7: 09/28/21 03:33 09/28/21 03:33 Labs: Abnormal Lab Results - Last 24 Hours (Table) 09/27/21 09/27/21 09/27/21 Range/Units 20:45 20:45 20:45 RBC 3.51 L (4.30-5.90) m/uL Hgb 11.7 L (13.0-17.5) gm/dL Hct 35.6 L (39.0-53.0) % MCV 101.4 H (80.0-100.0) fL Plt Count (150-450) k/uL Lymphocytes # 0.8 L (1.0-4.8) k/uL APTT 20.8 L (22.0-30.0) sec Chloride (98-107) mmol/L Carbon Dioxide 19 L (22-30) mmol/L BUN 34 H (9-20) mg/dL Creatinine 1.70 H (0.66-1.25) mg/dL Glucose 73 L (74-99) mg/dL AST 79 H (17-59) U/L ALT 53 H (4-49) U/L Troponin I (0.000-0.034) ng/mL Urine Protein (Negative) Urine Ketones (Negative) Hyaline Casts (0-2) /lpf Urine Mucus (None) /hpf 09/27/21 09/28/21 09/28/21 Range/Units 20:45 00:26 00:46 RBC (4.30-5.90) m/uL Hgb (13.0-17.5) gm/dL Hct (39.0-53.0) % MCV (80.0-100.0) fL Plt Count (150-450) k/uL Lymphocytes # (1.0-4.8) k/uL APTT (22.0-30.0) sec Chloride (98-107) mmol/L Carbon Dioxide (22-30) mmol/L BUN (9-20) mg/dL Creatinine (0.66-1.25) mg/dL Glucose (74-99) mg/dL AST (17-59) U/L ALT (4-49) U/L Troponin I 0.329 H* 0.907 H* (0.000-0.034) ng/mL Urine Protein 1+ H (Negative) Urine Ketones 1+ H (Negative) Hyaline Casts 77 H (0-2) /lpf Urine Mucus Rare H (None) /hpf 09/28/21 09/28/21 09/28/21 Range/Units 03:33 03:33 03:33 RBC 3.33 L (4.30-5.90) m/uL Hgb 11.3 L (13.0-17.5) gm/dL Hct 33.6 L (39.0-53.0) % MCV 100.9 H (80.0-100.0) fL Plt Count 146 L (150-450) k/uL Lymphocytes # (1.0-4.8) k/uL APTT 43.8 H (22.0-30.0) sec Chloride (98-107) mmol/L Carbon Dioxide (22-30) mmol/L BUN (9-20) mg/dL Creatinine (0.66-1.25) mg/dL Glucose (74-99) mg/dL AST (17-59) U/L ALT (4-49) U/L Troponin I 1.190 H* (0.000-0.034) ng/mL Urine Protein (Negative) Urine Ketones (Negative) Hyaline Casts (0-2) /lpf Urine Mucus (None) /hpf 09/28/21 Range/Units 03:33 RBC (4.30-5.90) m/uL Hgb (13.0-17.5) gm/dL Hct (39.0-53.0) % MCV (80.0-100.0) fL Plt Count (150-450) k/uL Lymphocytes # (1.0-4.8) k/uL APTT (22.0-30.0) sec Chloride 109 H (98-107) mmol/L Carbon Dioxide (22-30) mmol/L BUN 35 H (9-20) mg/dL Creatinine 1.65 H (0.66-1.25) mg/dL Glucose (74-99) mg/dL AST (17-59) U/L ALT (4-49) U/L Troponin I (0.000-0.034) ng/mL Urine Protein (Negative) Urine Ketones (Negative) Hyaline Casts (0-2) /lpf Urine Mucus (None) /hpf Thrombosis Risk Factor Assmnt - Choose All That Apply Any of the Below Risk Factors Present?: Yes Each Factor Represents 1 point: Abnormal pulmonary function (COPD) Other Risk Factors: Yes Each Risk Factor Represents 3 Points: Age 75 years or older Thrombosis Risk Factor Assessment Total Risk Factor Score: 4 Thrombosis Risk Factor Assessment Level: Moderate Risk Assessment and Plan (1) RUDY (acute kidney injury) Current Visit: Yes Status: Acute Code(s): N17.9 - ACUTE KIDNEY FAILURE, UNSPECIFIED SNOMED Code(s): 26793673 (2) Chronic respiratory failure with hypoxia Current Visit: Yes Status: Acute Code(s): J96.11 - CHRONIC RESPIRATORY FAILURE WITH HYPOXIA SNOMED Code(s): 635788531 (3) NSTEMI (non-ST elevated myocardial infarction) Current Visit: Yes Status: Acute Code(s): I21.4 - NON-ST ELEVATION (NSTEMI) MYOCARDIAL INFARCTION SNOMED Code(s): 84139625 (4) Pulmonary fibrosis Current Visit: Yes Status: Acute Code(s): J84.10 - PULMONARY FIBROSIS, UNSPECIFIED SNOMED Code(s): 03407077 Plan: Patient will be admitted for serial EKGs and serial enzymes will continue to follow patient overall prognosis if cardiac is stable he'll be discharged on Thanksgiving.
[2021-09-29 03:52] VITALS: RESP 18
[2021-09-29] MEDS: HEPARIN SOD,PORK IN 0.45% NACL 25,000 UNIT in 0.45% NACL 1 250ML.BAG IV SCH (03:53)
[2021-09-29] MEDS: ATORVASTATIN 40 MG TAB PO SCH (08:58)
[2021-09-29] MEDS: MAG HYDROX/AL HYDROX/SIMETH 30 ML CUP PO SCH ×2 (08:59→12:55)
[2021-09-29] MEDS: ASPIRIN 81 MG PO SCH (08:59)
[2021-09-29] MEDS: lisinopriL 5 MG TAB PO SCH (08:59)
[2021-09-29] MEDS: METOPROLOL SUCCINATE (ER) 50 MG TAB.ER.24H PO SCH (08:59)
--- NOTE | 2021-09-29 11:23 | P.PN ---
Subjective Patient is resting comfortably in bed. No respiratory distress at this time looks very comfortable No chest discomfort Afebrile, pulse rate in the 60s blood pressure 134/61 mmHg Reduced breath sounds bilaterally with fine crackles bilaterally Abdomen soft Impression Elevated troponin likely related to hypoxia, type II MD Presyncopal spell due to severe hypoxemia Known CAD status post PCI to the RCA Pulmonary fibrosis with chronic respiratory failure, hypoxic Hypertension Plan Stop IV heparin Continue aspirin, continue atorvastatin Continue lisinopril Continue metoprolol succinate From a cardiac standpoint he should follow-up with Dr. Ellsworth He may go home in the next 24-48 hours and follow with Dr. Ellsworth No further cardiac testing indicated at this point Objective - Vital Signs Vital signs: Vital Signs Temp 98 F 09/29/21 08:55 Pulse 60 09/29/21 08:55 Resp 18 09/29/21 08:55 BP 134/61 09/29/21 08:55 Pulse Ox 90 L 09/29/21 08:55 Intake & Output 09/28/21 09/29/21 09/29/21 18:59 06:59 18:59 Intake Total 720 177.198 240 Output Total 410 Balance 720 -232.802 240 Weight 65.771 kg Intake: Intake, IV Titration 177.198 Amount Heparin Sod,Pork in 0.45% 177.198 NaCl 25,000 unit In 0.45 % NaCl 1 250ml.bag @ 12 UNITS/KG/HR 7.893 mls/hr IV .Q24H [facility] Rx#: [id number] Oral 720 240 Output: Urine 410 Other: Voiding Method Urinal Urinal # Voids 0 # Bowel Movements 0 - Labs CBC & Chem 7: 09/28/21 03:33 09/28/21 03:33 Labs: Abnormal Lab Results - Last 24 Hours (Table) 09/29/21 Range/Units 09:23 APTT 35.2 H (22.0-30.0) sec
--- NOTE | 2021-09-29 12:47 | P.DS ---
Providers Date of admission: 09/27/21 22:25 Attending physician: Gokul Guerrero Consults: 09/27/21 22:25 Consult Physician Routine Consulting Provider: [facility] Consult Reason/Comments: NSTEMI, syncope Do you want consulting provider notified?: Yes Primary care physician: Gokul Guerrero Hospital Course: 85-year-old male came in after he had a syncopal episode as his oxygen tank ran out and patient was hypoxic. Patient also found to have elevated troponin cardio G valid the patient they believe his troponin elevation is secondary to hypoxemia. Patient wanted to go home if cleared by cardiology patient will be discharged home. Patient does have some chronic kidney disease with baseline creatinine of around 1.3 present creatinine is 1.6 which is an improvement from yesterday. IV heparin is being discontinued. Constitutional: Denied any fatigue denied any fever. Cardio vascular: denied any chest pain, palpitations Gastrointestinal denied any nausea vomiting Pulmonary: Denied any shortness of breath cough Neurologic denied any new focal deficits All inpatient medications were reviewed and appropriate changes in these medications as dictated in the interval history and assessment and plan. PHYSICAL EXAMINATION: GENERAL: The patient is alert and oriented x3, not in any acute distress. Well developed, well nourished. HEENT: Pupils are round and equally reacting to light. EOMI. No scleral icterus. No conjunctival pallor. Normocephalic, atraumatic. No pharyngeal erythema. No thyromegaly. CARDIOVASCULAR: S1 and S2 present. No murmurs, rubs, or gallops. PULMONARY: Chest is clear to auscultation, no wheezing or crackles. ABDOMEN: Soft, nontender, nondistended, normoactive bowel sounds. No palpable organomegaly. MUSCULOSKELETAL: No joint swelling or deformity. EXTREMITIES: No cyanosis, clubbing, or pedal edema. NEUROLOGICAL: Gross neurological examination did not reveal any focal deficits. SKIN: No rashes. Assessment and plan :-Troponin elevation: Secondary to hypoxemia and IV heparin is being this can urine patient was resumed on beta rodrigue and KENNY inhibitor -hypertension -Coronary artery disease -Chronic hypoxemia unsure why patient is chronically hypoxemic and is on oxygen at home -Hyperlipidemia -Hypertension -Chronic kidney disease stage III with the some mild acute renal failure which improved at this time. If cleared by cardiology patient will be discharged today Patient Condition at Discharge: Serious Plan - Discharge Summary Discharge Rx Participant: Yes New Discharge Prescriptions: New Metoprolol Succinate (ER) [Toprol XL] 50 mg PO DAILY #30 tablet lisinopriL [Zestril] 5 mg PO DAILY tab Continue Atorvastatin [Lipitor] 20 mg PO DAILY Aspirin [Adult Low Dose Aspirin EC] 81 mg PO DAILY Discontinued lisinopriL [Zestril] 10 mg PO DAILY Metoprolol Succinate (ER) [Toprol XL] 25 mg PO DAILY Discharge Medication List Aspirin [Adult Low Dose Aspirin EC] 81 mg PO DAILY 02/14/16 [History] Atorvastatin [Lipitor] 20 mg PO DAILY 02/14/16 [History] Metoprolol Succinate (ER) [Toprol XL] 50 mg PO DAILY #30 tablet 09/29/21 [Rx] lisinopriL [Zestril] 5 mg PO DAILY tab 09/29/21 [Rx] Follow up Appointment(s)/Referral(s): Pascual Garcia MD [STAFF PHYSICIAN] - 2 Weeks [facility],Clinic [REFERRING] - 1-2 days
[2021-09-29 13:10] VITALS: BP 159/71; PULSE 57; TEMP 98.3
== END 2021-09-29 14:37 | disposition home or self-care (01) | DRG 189 ==
LOC: EC 19:03 → 3SCARD 22:25
PROVIDERS: ADMIT Family Medicine; ATTEND Family Medicine
DX: J96.11 Chronic respiratory failure with hypoxia (principal); I21.A1 Myocardial infarction type 2; N17.9 Acute kidney failure, unspecified; R55 Syncope and collapse; C61 Malignant neoplasm of prostate; D53.9 Nutritional anemia, unspecified; I08.3 Combined rheumatic disorders of mitral, aortic and tricuspid valves; E78.5 Hyperlipidemia, unspecified; J84.10 Pulmonary fibrosis, unspecified; J44.9 Chronic obstructive pulmonary disease, unspecified; N18.30 Chronic kidney disease, stage 3 unspecified; Z20.822 Contact with and (suspected) exposure to COVID-19; I12.9 Hypertensive chronic kidney disease with stage 1 through stage 4 chronic kidney disease, or unspecified chronic kidney disease; I25.5 Ischemic cardiomyopathy; I25.10 Atherosclerotic heart disease of native coronary artery without angina pectoris; I25.2 Old myocardial infarction; I49.3 Ventricular premature depolarization; R90.82 White matter disease, unspecified; R32 Unspecified urinary incontinence; R15.9 Full incontinence of feces; Z99.81 Dependence on supplemental oxygen; Z79.82 Long term (current) use of aspirin; Z79.899 Other long term (current) drug therapy; Z87.19 Personal history of other diseases of the digestive system; Z98.61 Coronary angioplasty status; Z98.890 Other specified postprocedural states; Y82.8 Other medical devices associated with adverse incidents; Z80.9 Family history of malignant neoplasm, unspecified
CPT/HCPCS: 36415; 70450; 71046; 80048; 80053; 81001; 84484; 85025; 85610; 85730; 87635; 93005; 99285